=== PATIENT | female | born 1945 | race Caucasian/White ===

== ENCOUNTER → 2016-11-16 | Outpatient (CLI) | payer MEDICARE, BC, OTHER ==
--- NOTE | 2016-11-16 17:25 | REP ---
CHEST, TWO VIEWS: HISTORY: Shortness of breath. There is elevation of the left hemidiaphragm. The right lung is hyperinflated. The heart is upper limits of normal in size. The pulmonary vasculature is normal in appearance. The bony structure is intact. IMPRESSION: No acute disease. Signed by Stephen Zimmer MD 11/17/2016 08:35 A
== END ==
LOC: M RAD 16:29
PROVIDERS: ATTEND Internal Medicine Cardiovascular Disease
DX: R06.02 Shortness of breath (principal)

== ENCOUNTER → 2016-12-25 | Outpatient (CLI) | payer MEDICARE, OTHER ==
[~2016-12-25] MED LIST: BUPIVACAINE HCL 0.25% 10 ML VIAL As Ordered ONE; BUPIVACAINE HCL 0.25% 30 ML VIAL As Ordered ONE; TRIAMCINOLONE ACETONIDE SUSP 40 MG/ML VIAL (J3301) As Ordered ONE
--- NOTE | 2016-12-31 23:44 | ECWPNPC ---
PATIENT NAME: BRYAN PENG : 1945 GENDER: FEMALE VISIT DATE: 12/25/2016 DISCHARGE DATE: 12/25/16 1635 VISIT LOCKED DATE TIME: PHYSICIAN: JOHN MITCHELL RESOURCE: JOHN MITCHELL REASON FOR APPOINTMENT 1. TPI HISTORY OF PRESENT ILLNESS HISTORY OF PRESENT ILLNESS: PAIN THE PATIENT DESCRIBES THE PAIN... FALL RISK SCREENING: SCREENING :NO FALLS IN THE PAST YEAR CURRENT MEDICATIONS TAKING PEN NEEDLES 29G X 12MM MISCELLANEOUS 1 SUBCUTANEOUSLY ONCE DAILY TAKING ASPIR-81 81 MG TABLET DELAYED RELEASE 1 TABLET ORALLY ONCE A DAY, NOTES: YESTERDAY TAKING OMEPRAZOLE 40 MG CAPSULE DELAYED RELEASE 1 CAPSULE ORALLY ONCE A DAY, NOTES: 92912/25/16 TAKING LATANOPROST 0.005 % SOLUTION 1 DROP INTO AFFECTED EYE IN THE EVENING OPHTHALMIC ONCE A DAY, NOTES: 2199 TAKING DIGOXIN 125 MCG TABLET 1 TABLET ORALLY ONCE A DAY, NOTES: 92912/25/16 TAKING IMODIUM A-D 2 MG TABLET 2 TABLET ORALLY ONCE DAILY NEEDED, NOTES: 3 DAYS AGO TAKING ATENOLOL 50 MG TABLET 1 TABLET ORALLY ONCE A DAY, NOTES: 92912/25/16 TAKING BETAMETHASONE DIPROPIONATE 0.05 % CREAM 1 APPLICATION TO AFFECTED AREA EXTERNALLY ONCE A DAY, NOTES: 2 DAYS AGO TAKING BD PEN NEEDLE EVELYN U/F 32G X 4 MM MISCELLANEOUS DIRECTED SUBCUTANEOUSLY ONCE DAILY TAKING TRESIBA FLEXTOUCH 200 UNIT/ML SOLUTION PEN-INJECTOR 90 UNITS SUBCUTANEOUS DAILY, NOTES: MIDNIGHT TAKING INSULIN NPH (HUMAN) (ISOPHANE) 100 UNIT/ML SUSPENSION SUBCUTANEOUS SLIDING SCALE, NOTES: 92912/25/16 TAKING DIAZEPAM 5 MG TABLET 1 TABLET NEEDED ORALLY FOUR TIMES A DAY NEEDED, NOTES: 119912/25/16 TAKING LOMOTIL 2.5-0.025 MG TABLET 1 TABLET NEEDED ORALLY FOUR TIMES A DAY, NOTES: NOT LATELY TAKING TIZANIDINE HCL 2 MG TABLET 1 TABLET NEEDED ORALLY THREE TIMES A DAY, NOTES: 92912/25/16 TAKING ZETIA 10 MG TABLET 1 TABLET ORALLY ONCE A DAY, NOTES: YESTERDAY PM TAKING OXYCODONE HCL 5 MG TABLET 1 TABLET ORALLY EVERY 8 HR PRN MDD3, NOTES: 119912/25/16 NOT-TAKING TRESIBA 200 U/ML 90 UNITS SUBCUTANEOUSLY BEFORE SUPPER, NOTES: 08/13/16 1800-ON LIST TWICE NOT-TAKING MACROBID 100 MG CAPSULE 1 CAPSULE WITH FOOD ORALLY EVERY 12 HRS NOT-TAKING JAILYN-SYNEPHRINE 1 % SOLUTION 1 DROP IN EACH NOSTRIL NEEDED NASALLY EVERY 4 HRS, NOTES: 08/13/16 2200 NOT-TAKING LORATADINE 10 MG TABLET 1 TABLET ORALLY ONCE A DAY, NOTES: 2-3 DAYS MEDICATION LIST REVIEWED AND RECONCILED WITH THE PATIENT PAST MEDICAL HISTORY HYPERTENSION DM GERD CAD- [place] 2010 HYPERLIPIDEMIA INSOMNIA ANXIETY ATRIAL FLUTTER DX IN 2015- 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 GLAUCOMA ALLERGIES TETANUS IMMUNE GLOBULIN: STIFFNESS NECK AND ARM: ALLERGY TYLENOL: HIVES: ALLERGY HYDROCHLOROTHIAZIDE: HIVES: ALLERGY STAWBERRIES: ANAPHYLAXIS: ALLERGY DILTIAZEM CD: UNKNOWN: ALLERGY METOPROLOL TARTRATE: UNKNOWN: ALLERGY LISINOPRIL: UNKNOWN: ALLERGY BENZOCAINE: UNKNOWN: ALLERGY LIPITOR: EAR PROBLEMS: SIDE EFFECTS SIMVASTATIN: MYALGIA: SIDE EFFECTS CRESTOR: MYALGIA: SIDE EFFECTS BYDUREON: NAUSEA/VOMITNG: SIDE EFFECTS ACTOS: HX OF PANCREATITIS: ALLERGY DUST AND DUST MITES: SINUS CONGESTION: ALLERGY SOCIAL HISTORY GENERAL: PAIN CLINIC PFS, CLERGY, PUBLIC HEALTH REFERRALS CLERGY REFERRAL NEEDED?NO WAS THE PROVIDER NOTIFIED OF ANY PERTINENT INFO?NO PFS REFERRAL NEEDED?NO PUBLIC HEALTH REFERRAL NEEDED?NO PATIENT: ____. REVIEW OF SYSTEMS CONSTITUTIONAL: ANY CHANGE IN YOUR MEDICAL CONDITION? NO . CHILLS NO . FEVER NO . INFECTION: DO YOU HAVE NEW INFECTIONS? NO . DO YOU HAVE HISTORY OF MRSA? NO . MUSCULOSKELETAL: ANY NEW PATTERNS OF PAIN OR NUMBNESS? NO . GASTROENTEROLOGY: ANY NEW CHANGE IN BOWEL CONTROL? NO . GENITOURINARY: ANY NEW CHANGE IN BLADDER CONTROL? NO . IS THERE A CHANCE YOU COULD BE ? NO . HEMATOLOGY/LYMPH: DO YOU TAKE ANY BLOOD THINNERS? (FOR EXAMPLE- COUMADIN, PLAVIX, AGGRENOX, PLATEL, PRADAXA, OR XARELTO) NO . WHEN WAS YOUR LAST DOSE? DATE: TIME: . NEUROLOGY: HAVE YOU FALLEN IN THE PAST 6 MONTHS? YES . ANY NEW EXTREMITY NUMBNESS OR WEAKNESS? NO . CARDIOLOGY: DO YOU HAVE A PACEMAKER OR DEFIBRILLATOR? NO . RESPIRATORY: HAVE YOU BEEN SICK IN THE PAST WEEK? NO . FEVER NO . FLU LIKE SYMPTOMS? NO . COUGH NO . INTEGUMENTARY: DO YOU HAVE ANY RASHES OR OPEN SORES? NO . ALLERGIC/IMMUNO: ARE YOU ALLERGIC TO SHELLFISH OR IV DYE? NO . ANY NEW ALLERGIES? NO . PSYCHIATRIC: DO YOU HAVE THOUGHTS OF HURTING YOURSELF OR SOMEONE ELSE? NO . ARE YOU ABUSED, NEGLECTED, OR IN AN UNSAFE ENVIRONMENT? NO . ENDOCRINOLOGY: ARE YOU DIABETIC? YES, 109 AT 1200 TODAY . OTHER: DO YOU NEED ANY PRESCRIPTIONS? NO . ANY NEW PROBLEMS WITH YOUR MEDICATIONS? NO . WHEN DID YOU LAST EAT? 11AM . WHEN DID YOU LAST DRINK? 244 TODAY . WHAT DID YOU LAST DRINK? WATER . NAME OF PERSON DRIVING YOU HOME? KRISTIN GINETTE . DO YOU HAVE ANY OTHER QUESTIONS OR CONCERNS NO . REVIEWED BY: PROVIDER: . VITAL SIGNS WT 212 LBS, HT 62 IN, BMI 38.77 INDEX, BP 134/60 MM HG, HR 72 /MIN, RR 22 /MIN, TEMP 97.9 F, OXYGEN SAT % 94%, NA INITIALS SJ 1508, REVIEWED BY: NL. ASSESSMENTS MYALGIA - M79.1 (PRIMARY) PROCEDURES PN TRIGGER POINT INJECTION WITH STEROIDS PRE PROCEDURE DIAGNOSIS 1. MYALGIA 2. PAIN AT RIGHT SHOULDER AREA AND BILATERAL LOWER BACK AREA. POST PROCEDURE DIAGNOSIS 1. MYALGIA 2. PAIN AT RIGHT SHOULDER AREA AND BILATERAL LOWER BACK AREA. PROCEDURE TRIGGER POINT INJECTION AT RIGHT SHOULDER AREA AND BILATERAL LOWER BACK AREA. SURGEON DR. JOHN MITCHELL GAS INSPECTOR NONE ANESTHESIA LOCAL PRE PROCEDURE NOTE THE PATIENT HAS A HISTORY OF CHRONIC PAIN AT THE RIGHT SHOULDER AREA AND RIGHT AND LEFT LOWER BACK AREA. I EVALUATE THE PATIENT AND REVIEWED THE CHART. THERE IS EVIDENCE OF BANDS OF TISSUE WITH RESTRICTION OF MOVEMENT AND PRESENCE OF TRIGGER POINT AT THE AFFECTED AREA. I WENT OVER THE RISKS, ALTERNATIVES, AND BENEFITS ASSOCIATED WITH THIS PROCEDURE. THE PATIENT WOULD LIKE TO PROCEED AND GIVE CONSENT TO PERFORMED THE PROCEDURE. THE PATIENT DENIES UNEXPLAINABLE WEIGHT LOSS, FEVER, CHILLS, OR NEW CHANGES IN URINARY OR BOWEL CONTROL DESCRIPTION OF PROCEDURE THE PATIENT WAS BROUGHT TO THE PROCEDURE ROOM AND PLACED IN THE SITTING POSITION. THE AREA WAS CLEANED WITH ALCOHOL. THE PROCEDURE WAS DONE USING ASEPTIC STERILE TECHNIQUE. I CHECKED LATERALITY AND THE LEVEL WHERE THE PROCEDURE WAS GOING TO BE PERFORMED WITH THE PATIENT AND THE SUPPORTING STAFF AT THE MOMENT OF THE TIME OUT IN THE PROCEDURE ROOM. USING A 25-GAUGE NEEDLE, TRIGGER POINTS WERE INJECTED AT THE RIGHT SHOULDER AREA AND RIGHT AND LEFT LOWER BACK AREA WITH A TOTAL OF 40 ML OF BUPIVACAINE 0.25% AND KENALOG 40 MG. THERE WAS NO EVIDENCE OF BLOOD, PARESTHESIA OR CEREBROSPINAL FLUID DURING THE PROCEDURE. THE PATIENT WAS SENT TO THE RECOVERY ROOM. THE PATIENT WAS MOVING THE EXTREMITIES AND DOING WELL. THERE WAS NO COMPLICATION DURING THE PROCEDURE POST PROCEDURE NOTE THE PATIENT WILL BE SEEN IN A FOLLOW UP IN THE NEXT FEW WEEKS. INSTRUCTIONS WERE GIVEN, QUESTIONS WERE ANSWERED, AND THE PATIENT EXPRESSED UNDERSTANDING AND AGREES WITH THE PLAN. I, ROLO RILEY, DOCUMENTED THE ABOVE INFORMATION ACTING A SCRIBE FOR DR. MITCHELL. I HAVE REVIEWED THE ABOVE DOCUMENT, WRITTEN BY ORLO RILEY SCRIBE AND I VERIFY THAT IT IS ACCURATE. PROCEDURE CODES 95321 INJECT TRIGGER POINTS 3/> DISPOSITION & COMMUNICATION FOLLOW UP 3 WEEKS ELECTRONICALLY SIGNED BY JOHN MITCHELL MD ON 12/31/2016 AT 05:40 PM EDT DISCLAIMER : THIS IS A VISIT SUMMARY EXTRACTED FROM THE [email or web address] CHART. IT IS NOT A COPY OF THE [email or web address] PROGRESS NOTE. DUNG
== END ==
LOC: M PAIN 14:20
PROVIDERS: ATTEND Anesthesiology
DX: G89.29 Other chronic pain (principal); M25.511 Pain in right shoulder; M54.5 Low back pain; M79.1 Myalgia; I10 Essential (primary) hypertension; E11.9 Type 2 diabetes mellitus without complications; K21.9 Gastro-esophageal reflux disease without esophagitis; I25.2 Old myocardial infarction; E78.5 Hyperlipidemia, unspecified; G47.00 Insomnia, unspecified; F41.9 Anxiety disorder, unspecified; I48.92 Unspecified atrial flutter; Z88.7 Allergy status to serum and vaccine; Z91.018 Allergy to other foods; Z88.8 Allergy status to other drugs, medicaments and biological substances; Z91.048 Other nonmedicinal substance allergy status; Z79.82 Long term (current) use of aspirin; Z79.4 Long term (current) use of insulin; Z79.891 Long term (current) use of opiate analgesic; Z79.899 Other long term (current) drug therapy
CPT/HCPCS: 20553; J3301

== ENCOUNTER → 2017-01-01 | Outpatient (CLI) | payer MEDICARE, BC, OTHER ==
--- NOTE | 2017-01-01 15:50 | REP ---
SNIFF TEST: History: Post paralysis and repair left hemidiaphragm. The patient is status post coronary artery bypass grafting. Shortness of breath. Fluoroscopy time is 1 minute 6 seconds. Findings: The left hemidiaphragm is seen to be quite elevated over the gastric air bubble. With inspiration, and sniffing, the left hemidiaphragm moves in the appropriate direction, however, only very slightly. Right hemidiaphragm motion is normal. There is no paradoxical motion seen. Impression: Significantly restricted left hemidiaphragm motion. No paradoxical motion seen. Left hemidiaphragm is quite elevated. Signed by Kodak Gerardo MD 01/01/2017 06:27 P
== END ==
LOC: M RAD 13:06
PROVIDERS: ATTEND Internal Medicine Cardiovascular Disease
DX: R06.02 Shortness of breath (principal)

== ENCOUNTER → 2017-01-05 | Outpatient (CLI) | payer MEDICARE, OTHER ==
--- NOTE | 2017-01-20 00:48 | ECWPNPC ---
PATIENT NAME: BRYAN PENG : 1945 GENDER: FEMALE VISIT DATE: 01/05/2017 DISCHARGE DATE: 01/05/17 1421 VISIT LOCKED DATE TIME: PHYSICIAN: PIETRO ANDUJAR RESOURCE: PIETRO ANDUJAR REASON FOR APPOINTMENT 1. BACK HISTORY OF PRESENT ILLNESS HISTORY OF PRESENT ILLNESS: PAIN THE PATIENT DESCRIBES THE PAIN... FALL RISK SCREENING: SCREENING :NO FALLS IN THE PAST YEAR TODAY'S VISIT: NOTES: S/P TPI 12/25/16. RATES PAIN TODAY 5/10. DESCRIBES PAIN ASACHING, SHARP AND STABBING. NOTES PAIN IS OVER RIGHT SHOULDER BLADE, AND ACROSS LOW BACK. NOTES NEAR COMPLETE RESOLUTION OF PAIN IN RIGHT SHOULDER AND REDUCTION ACROSS LOW BACK. CURRENT MEDICATIONS TAKING PEN NEEDLES 29G X 12MM MISCELLANEOUS 1 SUBCUTANEOUSLY ONCE DAILY TAKING ASPIR-81 81 MG TABLET DELAYED RELEASE 1 TABLET ORALLY ONCE A DAY TAKING OMEPRAZOLE 40 MG CAPSULE DELAYED RELEASE 1 CAPSULE ORALLY ONCE A DAY TAKING LATANOPROST 0.005 % SOLUTION 1 DROP INTO AFFECTED EYE IN THE EVENING OPHTHALMIC ONCE A DAY TAKING DIGOXIN 125 MCG TABLET 1 TABLET ORALLY ONCE A DAY TAKING IMODIUM A-D 2 MG TABLET 2 TABLET ORALLY ONCE DAILY NEEDED TAKING ATENOLOL 50 MG TABLET 1 TABLET ORALLY ONCE A DAY TAKING BETAMETHASONE DIPROPIONATE 0.05 % CREAM 1 APPLICATION TO AFFECTED AREA EXTERNALLY ONCE A DAY TAKING BD PEN NEEDLE EVELYN U/F 32G X 4 MM MISCELLANEOUS DIRECTED SUBCUTANEOUSLY ONCE DAILY TAKING TRESIBA FLEXTOUCH 200 UNIT/ML SOLUTION PEN-INJECTOR 90 UNITS SUBCUTANEOUS DAILY TAKING INSULIN NPH (HUMAN) (ISOPHANE) 100 UNIT/ML SUSPENSION SUBCUTANEOUS SLIDING SCALE TAKING DIAZEPAM 5 MG TABLET 1 TABLET NEEDED ORALLY FOUR TIMES A DAY NEEDED TAKING LOMOTIL 2.5-0.025 MG TABLET 1 TABLET NEEDED ORALLY FOUR TIMES A DAY TAKING TIZANIDINE HCL 2 MG TABLET 1 TABLET NEEDED ORALLY THREE TIMES A DAY TAKING ZETIA 10 MG TABLET 1 TABLET ORALLY ONCE A DAY TAKING OXYCODONE HCL 5 MG TABLET 1 TABLET ORALLY EVERY 8 HR PRN MDD3 TAKING NYSTATIN 221513 UNIT/GM POWDER 1 TO AFFECTED AREA EXTERNALLY TWICE A DAY NOT-TAKING TRESIBA 200 U/ML 90 UNITS SUBCUTANEOUSLY BEFORE SUPPER, NOTES: 08/13/16 1800-ON LIST TWICE NOT-TAKING MACROBID 100 MG CAPSULE 1 CAPSULE WITH FOOD ORALLY EVERY 12 HRS NOT-TAKING JAILYN-SYNEPHRINE 1 % SOLUTION 1 DROP IN EACH NOSTRIL NEEDED NASALLY EVERY 4 HRS, NOTES: 08/13/16 2200 NOT-TAKING LORATADINE 10 MG TABLET 1 TABLET ORALLY ONCE A DAY, NOTES: 2-3 DAYS MEDICATION LIST REVIEWED AND RECONCILED WITH THE PATIENT PAST MEDICAL HISTORY HYPERTENSION DM GERD CAD- [place] 2010 HYPERLIPIDEMIA INSOMNIA ANXIETY ATRIAL FLUTTER DX IN 2016- DR LAGUERRE GLAUCOMA ALLERGIES TETANUS IMMUNE GLOBULIN: STIFFNESS NECK AND ARM: ALLERGY TYLENOL: HIVES: ALLERGY HYDROCHLOROTHIAZIDE: HIVES: ALLERGY STAWBERRIES: ANAPHYLAXIS: ALLERGY DILTIAZEM CD: UNKNOWN: ALLERGY METOPROLOL TARTRATE: UNKNOWN: ALLERGY LISINOPRIL: UNKNOWN: ALLERGY BENZOCAINE: UNKNOWN: ALLERGY LIPITOR: EAR PROBLEMS: SIDE EFFECTS SIMVASTATIN: MYALGIA: SIDE EFFECTS CRESTOR: MYALGIA: SIDE EFFECTS BYDUREON: NAUSEA/VOMITNG: SIDE EFFECTS ACTOS: HX OF PANCREATITIS: ALLERGY DUST AND DUST MITES: SINUS CONGESTION: ALLERGY SOCIAL HISTORY GENERAL: PAIN CLINIC PFS, CLERGY, PUBLIC HEALTH REFERRALS CLERGY REFERRAL NEEDED?NO WAS THE PROVIDER NOTIFIED OF ANY PERTINENT INFO?NO PFS REFERRAL NEEDED?NO PUBLIC HEALTH REFERRAL NEEDED?NO PATIENT: ____. REVIEW OF SYSTEMS CONSTITUTIONAL: ANY CHANGE IN YOUR MEDICAL CONDITION? YES, LOW BLOOD SUGARS . CHILLS NO . FEVER NO . INFECTION: DO YOU HAVE NEW INFECTIONS? NO . DO YOU HAVE HISTORY OF MRSA? NO . MUSCULOSKELETAL: ANY NEW PATTERNS OF PAIN OR NUMBNESS? NO . GASTROENTEROLOGY: GENERAL PERSISTANT BOWEL LEAKAGE. BLACK TARRY STOOL FREQ. HAD COLONSCOPY ALL CLEAR . ANY NEW CHANGE IN BOWEL CONTROL? NO . GENITOURINARY: ANY NEW CHANGE IN BLADDER CONTROL? NO . IS THERE A CHANCE YOU COULD BE ? NO . HEMATOLOGY/LYMPH: DO YOU TAKE ANY BLOOD THINNERS? (FOR EXAMPLE- COUMADIN, PLAVIX, AGGRENOX, PLATEL, PRADAXA, OR XARELTO) NO . WHEN WAS YOUR LAST DOSE? DATE: TIME: . NEUROLOGY: HAVE YOU FALLEN IN THE PAST 6 MONTHS? YES, SLIPPED IN THE SHOWER LAST NIGHT . ANY NEW EXTREMITY NUMBNESS OR WEAKNESS? NO . CARDIOLOGY: DO YOU HAVE A PACEMAKER OR DEFIBRILLATOR? NO . RESPIRATORY: HAVE YOU BEEN SICK IN THE PAST WEEK? NO . FEVER NO . FLU LIKE SYMPTOMS? NO . COUGH NO . INTEGUMENTARY: DO YOU HAVE ANY RASHES OR OPEN SORES? NO . ALLERGIC/IMMUNO: ARE YOU ALLERGIC TO SHELLFISH OR IV DYE? NO . ANY NEW ALLERGIES? NO . PSYCHIATRIC: DO YOU HAVE THOUGHTS OF HURTING YOURSELF OR SOMEONE ELSE? NO . ARE YOU ABUSED, NEGLECTED, OR IN AN UNSAFE ENVIRONMENT? NO . ENDOCRINOLOGY: ARE YOU DIABETIC? FEELS IS HAVING EPISODES OF LOW BLOOD SUGAR . OTHER: DO YOU NEED ANY PRESCRIPTIONS? YES . IF YES, PLEASE LIST: OXYCODONE 5MG . ANY NEW PROBLEMS WITH YOUR MEDICATIONS? NO . WHEN DID YOU LAST EAT? ____ . WHEN DID YOU LAST DRINK? ____ . WHAT DID YOU LAST DRINK? ____ . NAME OF PERSON DRIVING YOU HOME? ____ . DO YOU HAVE ANY OTHER QUESTIONS OR CONCERNS NO . REVIEWED BY: PROVIDER: PIETRO FELICIANO . VITAL SIGNS WT 207.3 LBS, HT 62 IN, BMI 37.91 INDEX, BP 140/64 MM HG, HR 68 /MIN, RR 20 /MIN, TEMP 98.1 F, OXYGEN SAT % 96, REVIEWED BY: NL. EXAMINATION GENERAL EXAMINATION: PSYCHALERT , ORIENTED X 3 , APPROPRIATE MOOD AND AFFECT , APPEARS UNCOMFORTABLE. LUNGS:CLEAR TO AUSCULTATION BILATERALLY, NO WHEEZES RALES OR RHONCHI. HEART:HEART RATE REGULAR. MUSCULOSKELETAL:POINT TENDERNESS OVER LUMBAR SPINOUS PROCESSES AND ACROSS THE LUMBOSACRAL AXIS. TENDERNESS WITH PALPATION OVER THE RIGHT SACROILIAC JOINT.. NO FOOT DROP NOTED. SLOW TO RISE TO A STANDING POSITION. POSTURE UPRIGHT. GAIT SLOW AND MILDLY ANTALGIC. , TRIGGER POINTS AND TIGHT FIBROUS BANDS IDENTIFIED OVER LUMBOSACRAL MUSCULATURE. DECREASED ROM WITH FLEXIOON AND ROTATION. ASSESSMENTS INTERVERTEBRAL DISC DISORDERS WITH RADICULOPATHY, LUMBAR REGION - M51.16 (PRIMARY) LUMBAGO DUE TO DISPLACEMENT OF INTERVERTEBRAL DISC - M51.26 TREATMENT INTERVERTEBRAL DISC DISORDERS WITH RADICULOPATHY, LUMBAR REGION REFILL OXYCODONE HCL TABLET, 5 MG, 1 TABLET, ORALLY, EVERY 8 HR PRN MDD3, 30 DAY(S), 60, REFILLS 0 TRIGGER POINT 3 + PIETRO RUSSELL 01/05/2017 2:02:31 PM > NECK/ RIGHT SHOULDER AND LOW BACK BILATERAL NOTES: CONTACT PRIMARY DOC ABOUT BLACK TARRY STOOLS, AND LEAKY BOWELS. CONTINUE CURRENT MEDS - USE OXYCODONE INFREQUENTLY. PREVENTIVE MEDICINE PAIN CLINIC TEACHING: PROCEDURE TEACHING PT. DECLINED PRINTED INFORMATION ON TPI STATING SHE HAS HAD THEM BEFORE AND IS FAMILIAR WITH THE PROCESS. PRE-PROCEDURE INSTRUCTIONS REVIEWED WITH PT. AND SHE VERBALIZED UNDERSTANDING. AD. PROCEDURE CODES FA211 ESTABILISHED PATIENT [facility] FACILITY CHARGE G8730 PAIN ASSESS POS TOOL F/U PLAN DOC G8427 DOC MEDS VERIFIED W/PT OR RE DISPOSITION & COMMUNICATION FOLLOW UP AFTER INJECTION (REASON: TPI TO LOW BACK/SHOULDER IN MID JANUARY) ELECTRONICALLY SIGNED BY LORENA LOPEZ ON 01/19/2017 AT 02:42 PM EDT DISCLAIMER : THIS IS A VISIT SUMMARY EXTRACTED FROM THE [employer] CHART. IT IS NOT A COPY OF THE [employer] PROGRESS NOTE. DUNG
== END ==
LOC: M PAIN 14:00
PROVIDERS: ATTEND Nurse Practitioner Family
DX: G89.29 Other chronic pain (principal); M51.16 Intervertebral disc disorders with radiculopathy, lumbar region; M51.26 Other intervertebral disc displacement, lumbar region; I10 Essential (primary) hypertension; E11.9 Type 2 diabetes mellitus without complications; K21.9 Gastro-esophageal reflux disease without esophagitis; I25.2 Old myocardial infarction; E78.5 Hyperlipidemia, unspecified; G47.00 Insomnia, unspecified; F41.9 Anxiety disorder, unspecified; Z88.7 Allergy status to serum and vaccine; Z88.6 Allergy status to analgesic agent; Z88.8 Allergy status to other drugs, medicaments and biological substances; Z91.018 Allergy to other foods; J30.89 Other allergic rhinitis; Z79.82 Long term (current) use of aspirin; Z79.4 Long term (current) use of insulin; Z79.891 Long term (current) use of opiate analgesic; Z79.899 Other long term (current) drug therapy

== ENCOUNTER → 2017-01-30 | Outpatient (CLI) | payer MEDICARE, OTHER ==
--- NOTE | 2017-02-10 00:31 | ECWPNPC ---
PATIENT NAME: BRYAN PENG : 1945 GENDER: FEMALE VISIT DATE: 01/30/2017 DISCHARGE DATE: 01/30/171706 VISIT LOCKED DATE TIME: PHYSICIAN: JOHN MITCHELL RESOURCE: JOHN MITCHELL HISTORY OF PRESENT ILLNESS HISTORY OF PRESENT ILLNESS: PAIN THE PATIENT DESCRIBES THE PAIN... 72 YEAR OLD FEMALE PATIENT WITH HISTORY OF CHRONIC BACK PAIN. PATIENT DESCRIBES THE PAIN ACHING, STABBING, AND HAVING IT ALL THE TIME WITH A PAIN SCORE OF 3/10 ON TODAY'S VISIT. PATIENT STATES THAT HER LOW BACK HURTS THE MOST TODAY. IT IS VERY DIFFICULT FOR MS. PENG TO BEND HER BACK. , PATIENT DENIES UNEXPLAINABLE WEIGHT LOSS, FEVER, CHILLS, NEW CHANGES ON HER URINARY OR BOWEL CONTROL. FALL RISK SCREENING: SCREENING :NO FALLS IN THE PAST YEAR CURRENT MEDICATIONS TAKING PEN NEEDLES 29G X 12MM MISCELLANEOUS 1 SUBCUTANEOUSLY ONCE DAILY TAKING ASPIR-81 81 MG TABLET DELAYED RELEASE 1 TABLET ORALLY ONCE A DAY TAKING OMEPRAZOLE 40 MG CAPSULE DELAYED RELEASE 1 CAPSULE ORALLY ONCE A DAY TAKING LATANOPROST 0.005 % SOLUTION 1 DROP INTO AFFECTED EYE IN THE EVENING OPHTHALMIC ONCE A DAY TAKING DIGOXIN 125 MCG TABLET 1 TABLET ORALLY ONCE A DAY TAKING IMODIUM A-D 2 MG TABLET 2 TABLET ORALLY ONCE DAILY NEEDED, NOTES: TAKES LOMOTIL FIRST TAKING ATENOLOL 50 MG TABLET 1 TABLET ORALLY ONCE A DAY TAKING BETAMETHASONE DIPROPIONATE 0.05 % CREAM 1 APPLICATION TO AFFECTED AREA EXTERNALLY ONCE A DAY TAKING BD PEN NEEDLE EVELYN U/F 32G X 4 MM MISCELLANEOUS DIRECTED SUBCUTANEOUSLY ONCE DAILY TAKING INSULIN NPH (HUMAN) (ISOPHANE) 100 UNIT/ML SUSPENSION SUBCUTANEOUS SLIDING SCALE TAKING DIAZEPAM 5 MG TABLET 1 TABLET NEEDED ORALLY FOUR TIMES A DAY NEEDED TAKING LOMOTIL 2.5-0.025 MG TABLET 1 TABLET NEEDED ORALLY FOUR TIMES A DAY TAKING TIZANIDINE HCL 2 MG TABLET 1 TABLET NEEDED ORALLY THREE TIMES A DAY TAKING NYSTATIN 900271 UNIT/GM POWDER 1 TO AFFECTED AREA EXTERNALLY TWICE A DAY TAKING OXYCODONE HCL 5 MG TABLET 1 TABLET ORALLY EVERY 8 HR PRN MDD3 TAKING PROZAC 40 MG CAPSULE 1 CAPSULE IN THE MORNING ORALLY ONCE A DAY TAKING TERBINAFINE HCL 1 % CREAM 1 APPLICATION TO AFFECTED AREA- BREAST EXTERNALLY TWICE A DAY NOT-TAKING TRESIBA FLEXTOUCH 200 UNIT/ML SOLUTION PEN-INJECTOR 90 UNITS SUBCUTANEOUS DAILY NOT-TAKING ZETIA 10 MG TABLET 1 TABLET ORALLY ONCE A DAY NOT-TAKING TRESIBA 200 U/ML 90 UNITS SUBCUTANEOUSLY BEFORE SUPPER, NOTES: 08/13/16 1800-ON LIST TWICE NOT-TAKING MACROBID 100 MG CAPSULE 1 CAPSULE WITH FOOD ORALLY EVERY 12 HRS NOT-TAKING JAILYN-SYNEPHRINE 1 % SOLUTION 1 DROP IN EACH NOSTRIL NEEDED NASALLY EVERY 4 HRS, NOTES: 08/13/16 2200 NOT-TAKING LORATADINE 10 MG TABLET 1 TABLET ORALLY ONCE A DAY, NOTES: 2-3 DAYS MEDICATION LIST REVIEWED AND RECONCILED WITH THE PATIENT PAST MEDICAL HISTORY HYPERTENSION DM GERD CAD- [place] 2010 HYPERLIPIDEMIA INSOMNIA ANXIETY ATRIAL FLUTTER DX IN 2016- DR LAGUERRE GLAUCOMA ALLERGIES TETANUS IMMUNE GLOBULIN: STIFFNESS NECK AND ARM: ALLERGY TYLENOL: HIVES: ALLERGY HYDROCHLOROTHIAZIDE: HIVES: ALLERGY STAWBERRIES: ANAPHYLAXIS: ALLERGY DILTIAZEM CD: UNKNOWN: ALLERGY METOPROLOL TARTRATE: UNKNOWN: ALLERGY LISINOPRIL: UNKNOWN: ALLERGY BENZOCAINE: UNKNOWN: ALLERGY LIPITOR: EAR PROBLEMS: SIDE EFFECTS SIMVASTATIN: MYALGIA: SIDE EFFECTS CRESTOR: MYALGIA: SIDE EFFECTS BYDUREON: NAUSEA/VOMITNG: SIDE EFFECTS ACTOS: HX OF PANCREATITIS: ALLERGY DUST AND DUST MITES: SINUS CONGESTION: ALLERGY SURGICAL HISTORY LEFT KNEE ARTHROSCOPY LEFT KNEE TKA 2000 RIGHT CARPAL TUNNEL RELEASE HYSTERECTOMY CABG X 5 2010 FAMILY HISTORY NO FAMILY HISTORY DOCUMENTED. SOCIAL HISTORY GENERAL: TOBACCO USE ARE YOU A:FORMER SMOKER HOW LONG HAS IT BEEN SINCE YOU LAST SMOKED?1-5 YEARS BMI CARE GOAL FOLLOW-UP ABOVE NORMAL BMI FOLLOW-UPDIETARY MANAGEMENT EDUCATION, GUIDANCE, AND COUNSELING ALCOHOL SCREENING DID YOU HAVE A DRINK CONTAINING ALCOHOL IN THE PAST YEAR?NO POINTS0 INTERPRETATIONNEGATIVE RECREATIONAL DRUG USE DRUG USE?NO CAFFEINE CAFFEINE USE?YES HIV / HEP-C SCREENING HIV TEST OFFERED TO PATIENT:NO HEP-C TEST OFFERED TO PATIENT:YES DATE OFFERED:01/15/2017 TEST ACCEPTED:NO REASON:PATIENT DECLINED DIET: REGULAR. EXERCISE: NO REGULAR EXERCISE. OTHERS AT HOME: NONE. LANGUAGE LANGUAGES SPOKEN:TURKISH LEARNING BARRIERS / SPECIAL NEEDS CHANGE FROM LAST VISIT?NO BARRIERS TO LEARNING?NO HEARING IMPAIRED?NO VISION IMPAIRED?YES COGNITIVELY IMPAIRED?NO :CORRECTIVE LENSES READINESS TO LEARN?YES LEARNING PREFERENCES?NO LEARNING CAPABILITIES PRESENT?YES EMOTIONAL BARRIERS?YES COMMENTSDOCUMENTED IN NOTES SECTION> SPECIAL DEVICES?YES :CANE SENIOR IT SPECIALIST NEEDED?NO PAIN CLINIC PFS, CLERGY, PUBLIC HEALTH REFERRALS PFS REFERRAL NEEDED?NO CLERGY REFERRAL NEEDED?NO PUBLIC HEALTH REFERRAL NEEDED?NO WAS THE PROVIDER NOTIFIED OF ANY PERTINENT INFO?NO PATIENT: ____. HOSPITALIZATION/MAJOR DIAGNOSTIC PROCEDURE [facility] FLUTTER 12/27/15 REVIEW OF SYSTEMS CONSTITUTIONAL: ANY CHANGE IN YOUR MEDICAL CONDITION? NO . CHILLS NO . FEVER NO . INFECTION: DO YOU HAVE NEW INFECTIONS? NO . DO YOU HAVE HISTORY OF MRSA? NO . MUSCULOSKELETAL: ANY NEW PATTERNS OF PAIN OR NUMBNESS? NO . GASTROENTEROLOGY: ANY NEW CHANGE IN BOWEL CONTROL? NO . GENITOURINARY: ANY NEW CHANGE IN BLADDER CONTROL? NO . IS THERE A CHANCE YOU COULD BE ? NO . HEMATOLOGY/LYMPH: DO YOU TAKE ANY BLOOD THINNERS? (FOR EXAMPLE- COUMADIN, PLAVIX, AGGRENOX, PLATEL, PRADAXA, OR XARELTO) NO . WHEN WAS YOUR LAST DOSE? DATE: TIME: . NEUROLOGY: HAVE YOU FALLEN IN THE PAST 6 MONTHS? YES . ANY NEW EXTREMITY NUMBNESS OR WEAKNESS? NO . CARDIOLOGY: DO YOU HAVE A PACEMAKER OR DEFIBRILLATOR? NO . RESPIRATORY: HAVE YOU BEEN SICK IN THE PAST WEEK? YES, SHINGLES . FEVER NO . FLU LIKE SYMPTOMS? NO . COUGH NO . INTEGUMENTARY: DO YOU HAVE ANY RASHES OR OPEN SORES? NO . ALLERGIC/IMMUNO: ARE YOU ALLERGIC TO SHELLFISH OR IV DYE? NO . ANY NEW ALLERGIES? NO . PSYCHIATRIC: DO YOU HAVE THOUGHTS OF HURTING YOURSELF OR SOMEONE ELSE? NO . ARE YOU ABUSED, NEGLECTED, OR IN AN UNSAFE ENVIRONMENT? NO . ENDOCRINOLOGY: ARE YOU DIABETIC? NO . OTHER: DO YOU NEED ANY PRESCRIPTIONS? YES . IF YES, PLEASE LIST: OXYCODONE 5MG . ANY NEW PROBLEMS WITH YOUR MEDICATIONS? NO . WHEN DID YOU LAST EAT? ____ . WHEN DID YOU LAST DRINK? ____ . WHAT DID YOU LAST DRINK? ____ . NAME OF PERSON DRIVING YOU HOME? ____ . DO YOU HAVE ANY OTHER QUESTIONS OR CONCERNS NO . REVIEWED BY: PROVIDER: JOHN MITCHELL MD . VITAL SIGNS WT 203.2 LBS, HT 62 IN, BMI 37.16 INDEX, BP 129/69 MM HG, HR 60 /MIN, RR 18 /MIN, TEMP 97.1 F, OXYGEN SAT % 98%, NA INITIALS SC 15:45, REVIEWED BY: NL. EXAMINATION : PATIENT IS ALERT O X 3 AND COOPERATIVE. THERE IS TENDERNESS IN THE LOW BACK PARASPINAL MUSCLE GROUP. MRI OF THE LUMBAR SPINE DONE ON 02/10/2016 SHOWS FACET ARTHROPATHY, DISC BULGES, AND CANAL STENOSIS AT MULTIPLE LEVELS. ASSESSMENTS SPONDYLOSIS WITHOUT MYELOPATHY OR RADICULOPATHY, LUMBAR REGION - M47.816 (PRIMARY) SPONDYLOSIS WITHOUT MYELOPATHY OR RADICULOPATHY, LUMBOSACRAL REGION - M47.817 TREATMENT SPONDYLOSIS WITHOUT MYELOPATHY OR RADICULOPATHY, LUMBAR REGION NOTES: WE DISCUSSED SEVERAL ISSUES WITH MS. PENG'S PAIN MANAGEMENT CASE. AT THIS TIME THE PATIENT WILL CONTINUE WITH THE SAME MEDICATION REGIMEN BEFORE. AFTER EXAMINING THE PATIENT AND REVIEWING THE MRI OF THE LUMBAR SPINE PATIENT IS A GOOD CANDIDATE FOR A LUMBAR FACET BLOCK INJECTION THERAPEUTIC. WE DISCUSSED THE RISK, BENEFITS, AND ALTERNATIVES AND THE PATIENT WANTS TO PROCEED FORWARD. PATIENT WILL BE BOOKED PENDING APPROVAL. PATIENT WILL FOLLOW UP WITH ANIKA ANDUJAR IN 4 WEEKS. , INSTRUCTIONS WERE GIVEN, QUESTIONS WERE ANSWERED, PATIENT REPORTS UNDERSTANDING AND AGREES WITH THE PLAN. I, ROLO RILEY, DOCUMENTED THE ABOVE INFORMATION ACTING A SCRIBE FOR DR. MITCHELL. I HAVE REVIEWED THE ABOVE DOCUMENT, WRITTEN BY ROLO RILEY SCRIBJakob AND I VERIFY THAT IT IS ACCURATE. PROCEDURE CODES FA211 ESTABILISHED PATIENT [facility] FACILITY CHARGE [id number] PAIN ASSESS POS TOOL F/U PLAN DOC G8427 DOC MEDS VERIFIED W/PT OR RE DISPOSITION & COMMUNICATION FOLLOW UP 4 WEEKS ELECTRONICALLY SIGNED BY JOHN MITCHELL MD ON 02/09/2017 AT 04:04 PM EDT DISCLAIMER : THIS IS A VISIT SUMMARY EXTRACTED FROM THE [employer] CHART. IT IS NOT A COPY OF THE [employer] PROGRESS NOTE. DUNG
== END ==
LOC: M PAIN 15:20
PROVIDERS: ATTEND Anesthesiology
DX: G89.29 Other chronic pain (principal); M47.816 Spondylosis without myelopathy or radiculopathy, lumbar region; M47.817 Spondylosis without myelopathy or radiculopathy, lumbosacral region; I10 Essential (primary) hypertension; E11.9 Type 2 diabetes mellitus without complications; K21.9 Gastro-esophageal reflux disease without esophagitis; I25.2 Old myocardial infarction; E78.5 Hyperlipidemia, unspecified; G47.00 Insomnia, unspecified; F41.9 Anxiety disorder, unspecified; Z88.7 Allergy status to serum and vaccine; Z88.6 Allergy status to analgesic agent; Z88.8 Allergy status to other drugs, medicaments and biological substances; Z91.018 Allergy to other foods; J30.89 Other allergic rhinitis; Z79.82 Long term (current) use of aspirin; Z79.4 Long term (current) use of insulin; Z79.891 Long term (current) use of opiate analgesic; Z79.899 Other long term (current) drug therapy; Z87.891 Personal history of nicotine dependence

== ENCOUNTER → 2017-02-06 | Outpatient (REF) | payer MEDICARE, OTHER ==
[2017-02-06 16:50] LABS: BASO % 0.4 % (0.0-1.0); EOS # 0.1 K/mm3 (0.0-0.50); EOS % 1.1 % (0.0-3.0); LARGE UNSTAINED CELL # 0.1 K/mm3 (0.0-0.4); LYMPH # 1.5 K/mm3 (1.5-4.5); LYMPH % 15.5 % (24.0-44.0); MEAN CORPUSCULAR HEMOGLOBIN 26.4 pg (27.0-33.0); MEAN CORPUSCULAR HGB CONC 31.6 g/dl (32.0-36.5); MEAN CORPUSCULAR VOLUME 83.3 fl (80.0-96.0); MONO # 0.4 K/mm3 (0.0-0.8); MONO % 4.7 % (0.0-5.0); NEUTROPHILS # 7.1 K/mm3 (1.8-7.7); NEUTROPHILS % 77.3 % (36.0-66.0); PLATELET COUNT, AUTOMATED 337 k/mm3 (150-450); RED CELL DISTRIBUTION WIDTH 16.4 % (11.5-14.5); WHITE BLOOD COUNT 9.2 K/mm3 (4.0-10.0)
[2017-02-06 17:19] LABS: ERYTHROCYTE SEDIMENTATION RATE 11 mm/hr (0-30)
[2017-02-06 18:57] LABS: ALBUMIN 3.5 GM/DL (3.2-5.2); ALBUMIN/GLOBULIN RATIO 1.25 (1.00-1.93); ALKALINE PHOSPHATASE 120 U/L (45-117); ALT/SGPT 28 U/L (12-78); ANION GAP 12 MEQ/L (8-16); AST/SGOT 16 U/L (15-37); BILIRUBIN,TOTAL 0.3 MG/DL (0.2-1.0); BLOOD UREA NITROGEN 16 MG/DL (7-18); CALCIUM LEVEL 8.6 MG/DL (8.8-10.2); CARBON DIOXIDE LEVEL 25 MEQ/L (21-32); CHLORIDE LEVEL 100 MEQ/L (98-107); CREATININE FOR GFR 0.75 MG/DL (0.55-1.02); GLOMERULAR FILTRATION RATE > 60.0 (>45); GLUCOSE, FASTING 189 MG/DL (80-110); POTASSIUM SERUM 4.1 MEQ/L (3.5-5.1); SODIUM LEVEL 137 MEQ/L (136-145); THYROXINE (T4) 11.3 UG/DL (4.5-12.0); TOTAL PROTEIN 6.3 GM/DL (6.4-8.2)
== END ==
LOC: M SFHCCLAY 13:41
PROVIDERS: ATTEND Family Medicine
DX: R10.11 Right upper quadrant pain (principal); R19.5 Other fecal abnormalities; Z79.899 Other long term (current) drug therapy
CPT/HCPCS: 80053; 82784; 84436; 84443; 84480; 85025; 85652; 86140; 86256; G0463

== ENCOUNTER → 2017-02-07 | Outpatient (CLI) | payer MEDICARE, OTHER ==
[~2017-02-07] MED LIST changes: -BUPIVACAINE HCL 0.25% 10 ML VIAL As Ordered ONE; +ISOVUE-M 300 61% 15ML VIAL (Q9967) As Ordered ONE; +LIDOCAINE 1% SDV INJ 30 ML VIAL As Ordered ONE; +diazePAM 5 MG TAB As Ordered ONE; +oxyCODONE 5MG TAB As Ordered ONE
--- NOTE | 2017-02-07 16:53 | REP ---
Partial lumbar spine series: Two views: History: Lateral facet block for pain. 16 seconds of fluoroscopy time is reported. Findings: A sequence of two fluoroscopically obtained last image hold intraprocedural spot radiographs of the lumbar spine document various needle positions and contrast injection associated with lumbar spine injection procedure. Signed by Kodak Gerardo MD 02/08/2017 08:59 A
--- NOTE | 2017-02-12 23:15 | ECWPNPC ---
PATIENT NAME: BRYAN PENG : 1945 GENDER: FEMALE VISIT DATE: 02/07/2017 DISCHARGE DATE: 02/07/171654 VISIT LOCKED DATE TIME: PHYSICIAN: JOHN MITCHELL RESOURCE: JOHN MITCHELL REASON FOR APPOINTMENT 1. LFBT HISTORY OF PRESENT ILLNESS HISTORY OF PRESENT ILLNESS: PAIN THE PATIENT DESCRIBES THE PAIN... FALL RISK SCREENING: SCREENING :NO FALLS IN THE PAST YEAR CURRENT MEDICATIONS TAKING PEN NEEDLES 29G X 12MM MISCELLANEOUS 1 SUBCUTANEOUSLY ONCE DAILY, NOTES: 0902/07/17 TAKING ASPIR-81 81 MG TABLET DELAYED RELEASE 1 TABLET ORALLY ONCE A DAY, NOTES: 89902/07/17 TAKING OMEPRAZOLE 40 MG CAPSULE DELAYED RELEASE 1 CAPSULE ORALLY ONCE A DAY, NOTES: 89902/07/17 TAKING LATANOPROST 0.005 % SOLUTION 1 DROP INTO AFFECTED EYE IN THE EVENING OPHTHALMIC ONCE A DAY TAKING DIGOXIN 125 MCG TABLET 1 TABLET ORALLY ONCE A DAY, NOTES: 89902/07/17 TAKING IMODIUM A-D 2 MG TABLET 2 TABLET ORALLY ONCE DAILY NEEDED, NOTES: TAKES LOMOTIL FIRST TAKING BD PEN NEEDLE EVELYN U/F 32G X 4 MM MISCELLANEOUS DIRECTED SUBCUTANEOUSLY ONCE DAILY TAKING INSULIN NPH (HUMAN) (ISOPHANE) 100 UNIT/ML SUSPENSION SUBCUTANEOUS SLIDING SCALE, NOTES: YESTERDAY DINNER 02/06/17 TAKING DIAZEPAM 5 MG TABLET 1 TABLET NEEDED ORALLY FOUR TIMES A DAY NEEDED, NOTES: UNSURE TAKING LOMOTIL 2.5-0.025 MG TABLET 1 TABLET NEEDED ORALLY FOUR TIMES A DAY, NOTES: NOT LATELY TAKING NYSTATIN 003680 UNIT/GM POWDER 1 TO AFFECTED AREA EXTERNALLY TWICE A DAY TAKING PROZAC 40 MG CAPSULE 1 CAPSULE IN THE MORNING ORALLY ONCE A DAY, NOTES: 0900 TAKING ATENOLOL 50 MG TABLET 1 TABLET ORALLY ONCE A DAY, NOTES: 09 TAKING NYSTATIN-TRIAMCINOLONE 372119-6.1 UNIT/GM CREAM 1 APPLICATION TO AFFECTED AREA EXTERNALLY TWICE A DAY TAKING FLUCONAZOLE 150 MG TABLET 1 TABLET ORALLY TAKE ONE AND REPEAT IN ONE WEEK, NOTES: 0900 TAKING OXYCODONE HCL 5 MG TABLET 1 TABLET ORALLY EVERY 8 HR PRN MDD3, NOTES: LAST NIGHT TAKING PROBIOTIC - CAPSULE 1 CAPSULE ORALLY TWICE A DAY, NOTES: NOT LATELY NOT-TAKING TIZANIDINE HCL 2 MG TABLET 1 TABLET NEEDED ORALLY THREE TIMES A DAY NOT-TAKING BETAMETHASONE DIPROPIONATE 0.05 % CREAM 1 APPLICATION TO AFFECTED AREA EXTERNALLY ONCE A DAY NOT-TAKING TRESIBA FLEXTOUCH 200 UNIT/ML SOLUTION PEN-INJECTOR 90 UNITS SUBCUTANEOUS DAILY NOT-TAKING ZETIA 10 MG TABLET 1 TABLET ORALLY ONCE A DAY NOT-TAKING TRESIBA 200 U/ML 90 UNITS SUBCUTANEOUSLY BEFORE SUPPER, NOTES: 08/13/16 1800-ON LIST TWICE NOT-TAKING MACROBID 100 MG CAPSULE 1 CAPSULE WITH FOOD ORALLY EVERY 12 HRS NOT-TAKING JAILYN-SYNEPHRINE 1 % SOLUTION 1 DROP IN EACH NOSTRIL NEEDED NASALLY EVERY 4 HRS, NOTES: 08/13/16 2200 NOT-TAKING LORATADINE 10 MG TABLET 1 TABLET ORALLY ONCE A DAY, NOTES: 2-3 DAYS MEDICATION LIST REVIEWED AND RECONCILED WITH THE PATIENT PAST MEDICAL HISTORY HYPERTENSION DM GERD CAD- OR 2010 HYPERLIPIDEMIA INSOMNIA ANXIETY ATRIAL FLUTTER DX IN 2015- DR LAGUERRE GLAUCOMA ALLERGIES TETANUS IMMUNE GLOBULIN: STIFFNESS NECK AND ARM: ALLERGY TYLENOL: HIVES: ALLERGY HYDROCHLOROTHIAZIDE: HIVES: ALLERGY STAWBERRIES: ANAPHYLAXIS: ALLERGY DILTIAZEM CD: UNKNOWN: ALLERGY METOPROLOL TARTRATE: UNKNOWN: ALLERGY LISINOPRIL: UNKNOWN: ALLERGY BENZOCAINE: UNKNOWN: ALLERGY LIPITOR: EAR PROBLEMS: SIDE EFFECTS SIMVASTATIN: MYALGIA: SIDE EFFECTS CRESTOR: MYALGIA: SIDE EFFECTS BYDUREON: NAUSEA/VOMITNG: SIDE EFFECTS ACTOS: HX OF PANCREATITIS: ALLERGY DUST AND DUST MITES: SINUS CONGESTION: ALLERGY REVIEW OF SYSTEMS CONSTITUTIONAL: ANY CHANGE IN YOUR MEDICAL CONDITION? NO . CHILLS NO . FEVER NO . INFECTION: DO YOU HAVE NEW INFECTIONS? NO . DO YOU HAVE HISTORY OF MRSA? NO . MUSCULOSKELETAL: ANY NEW PATTERNS OF PAIN OR NUMBNESS? YES . GASTROENTEROLOGY: ANY NEW CHANGE IN BOWEL CONTROL? NO . GENITOURINARY: ANY NEW CHANGE IN BLADDER CONTROL? NO . IS THERE A CHANCE YOU COULD BE ? NO . HEMATOLOGY/LYMPH: DO YOU TAKE ANY BLOOD THINNERS? (FOR EXAMPLE- COUMADIN, PLAVIX, AGGRENOX, PLATEL, PRADAXA, OR XARELTO) NO . WHEN WAS YOUR LAST DOSE? DATE: TIME: . NEUROLOGY: HAVE YOU FALLEN IN THE PAST 6 MONTHS? YES . ANY NEW EXTREMITY NUMBNESS OR WEAKNESS? NO . CARDIOLOGY: DO YOU HAVE A PACEMAKER OR DEFIBRILLATOR? NO . RESPIRATORY: HAVE YOU BEEN SICK IN THE PAST WEEK? NO . FEVER NO . FLU LIKE SYMPTOMS? NO . COUGH NO . INTEGUMENTARY: DO YOU HAVE ANY RASHES OR OPEN SORES? NO . ALLERGIC/IMMUNO: ARE YOU ALLERGIC TO SHELLFISH OR IV DYE? NO . ANY NEW ALLERGIES? NO . PSYCHIATRIC: DO YOU HAVE THOUGHTS OF HURTING YOURSELF OR SOMEONE ELSE? NO . ARE YOU ABUSED, NEGLECTED, OR IN AN UNSAFE ENVIRONMENT? NO . ENDOCRINOLOGY: ARE YOU DIABETIC? YES . OTHER: DO YOU NEED ANY PRESCRIPTIONS? NO . IF YES, PLEASE LIST: ____ . ANY NEW PROBLEMS WITH YOUR MEDICATIONS? NO . WHEN DID YOU LAST EAT? LAST EVENING . WHEN DID YOU LAST DRINK? 2 HOURS AGO . WHAT DID YOU LAST DRINK? WATER . NAME OF PERSON DRIVING YOU HOME? KRISTIN . DO YOU HAVE ANY OTHER QUESTIONS OR CONCERNS RIGHT BIG TOE PAIN . REVIEWED BY: PROVIDER: . VITAL SIGNS WT 202.0 LBS, HT 62 IN, BMI 36.94 INDEX, BP 137/66 MM HG, HR 63 /MIN, RR 18 /MIN, TEMP 97.0 F, OXYGEN SAT % 96%, NA INITIALS TL 1253, REVIEWED BY: NL. ASSESSMENTS SPONDYLOSIS WITHOUT MYELOPATHY OR RADICULOPATHY, LUMBAR REGION - M47.816 (PRIMARY) SPONDYLOSIS WITHOUT MYELOPATHY OR RADICULOPATHY, LUMBOSACRAL REGION - M47.817 PROCEDURES PN LUMBAR FACET BLOCK THERAPEUTIC PRE PROCEDURE DIAGNOSIS LUMBAR SPONDYLOSIS, LUMBOSACRAL SPONDYLOSIS POST PROCEDURE DIAGNOSIS LUMBAR SPONDYLOSIS, LUMBOSACRAL SPONDYLOSIS PROCEDURE BILATERAL L4-L5 AND L5-S1 LUMBAR FACET THERAPEUTIC BLOCK SURGEON DR. JOHN MITCHELL NETWORK TECHNICIAN NONE ANESTHESIA LOCAL PRE PROCEDURE NOTE THE PATIENT HAS A HISTORY OF CHRONIC LOW BACK PAIN. I EVALUATE THE PATIENT AND REVIEWED THE CHART. I WENT OVER THE RISKS, ALTERNATIVES, AND BENEFITS ASSOCIATED WITH THIS PROCEDURE. THE PATIENT WOULD LIKE TO PROCEED AND GIVE CONSENT TO PERFORMED THE PROCEDURE. THE PATIENT DENIES UNEXPLAINABLE WEIGHT LOSS, FEVER, CHILLS, OR NEW CHANGES IN URINARY OR BOWEL CONTROL DESCRIPTION OF PROCEDURE THE PATIENT WAS BROUGHT TO THE PROCEDURE ROOM AND PLACED IN THE PRONE POSITION. THE LUMBOSACRAL AREA WAS CLEANED WITH CHLORAPREP SOLUTION AND DRAPED ASEPTICALLY. THE PROCEDURE WAS DONE UNDER STERILE CONDITIONS. I CHECKED LATERALITY AND THE LEVEL WHERE THE PROCEDURE WAS GOING TO BE PERFORMED WITH THE PATIENT AND THE SUPPORTING STAFF AT THE MOMENT OF THE TIME OUT IN THE PROCEDURE ROOM. UNDER FLUOROSCOPIC GUIDANCE, THE TARGET POINT WAS SELECTED AT THE RIGHT AND LEFT L4-L5 AND L5-S1 FACET JOINT. TARGET POINT WAS SELECTED AFTER LATERAL ROTATION AND TILT OF THE MAGNIFIER OF THE C-ARM. LIDOCAINE 0.5% WAS USED TO NUMB THE SKIN AND THE SUBCUTANEOUS TISSUE BELOW IT. SPINAL NEEDLES, 22-GAUGE, WERE ADVANCED UNDER FLUOROSCOPIC GUIDANCE AND FOLLOWING PATIENT FEEDBACK UNTIL THE TARGETS WERE TOUCHED. THE POSITION OF THE NEEDLES WAS VERIFIED WITH AP AND LATERAL VIEWS. AFTER PROPER POSITION OF THE NEEDLES WAS ACHIEVED, ISOVUE-M DYE 30% 0.1 ML WAS INJECTED SHOWING ADEQUATE SPREAD OF THE DYE. THEN A SOLUTION OF 1.9 ML OF BUPIVACAINE 0.125% OF KENALOG 10 MG WAS INJECTED AT EACH SITE. THERE WAS NO EVIDENCE OF BLOOD, PARESTHESIA OR CEREBROSPINAL FLUID DURING THE PROCEDURE. THE PATIENT WAS SENT TO THE RECOVERY ROOM. THE PATIENT WAS MOVING THE EXTREMITIES AND DOING WELL. THERE WAS NO COMPLICATION DURING THE PROCEDURE. FLUOROSCOPY TIME WAS 16 SECONDS POST PROCEDURE NOTE THE PATIENT WILL BE SEEN IN A FOLLOW UP IN THE NEXT FEW WEEKS. INSTRUCTIONS WERE GIVEN, QUESTIONS WERE ANSWERED, AND THE PATIENT EXPRESSED UNDERSTANDING AND AGREES WITH THE PLAN. I, ROLO RILEY, DOCUMENTED THE ABOVE INFORMATION ACTING A SCRIBE FOR DR. MITCHELL. I HAVE REVIEWED THE ABOVE DOCUMENT, WRITTEN BY ROLO RILEY SCRIBE AND I VERIFY THAT IT IS ACCURATE DIAGNOSTIC IMAGING [facility] FACET BLOCK (PAIN)[id number] PROCEDURE CODES 20759 INJ PARAVERT F JNT L/S 1 LEV 75254 INJ PARAVERT F JNT L/S 2 LEV 6045F RADXPS IN END [id number] PXD DISPOSITION & COMMUNICATION FOLLOW UP 3 WEEKS ELECTRONICALLY SIGNED BY JOHN MITCHELL MD ON 02/12/2017 AT 11:24 AM EDT DISCLAIMER : THIS IS A VISIT SUMMARY EXTRACTED FROM THE [employer] CHART. IT IS NOT A COPY OF THE [employer] PROGRESS NOTE. MTDD
== END ==
LOC: M PAIN 12:40
PROVIDERS: ATTEND Anesthesiology
DX: G89.29 Other chronic pain (principal); M47.816 Spondylosis without myelopathy or radiculopathy, lumbar region; M47.817 Spondylosis without myelopathy or radiculopathy, lumbosacral region; I10 Essential (primary) hypertension; E11.9 Type 2 diabetes mellitus without complications; K21.9 Gastro-esophageal reflux disease without esophagitis; I25.2 Old myocardial infarction; E78.5 Hyperlipidemia, unspecified; G47.00 Insomnia, unspecified; F41.9 Anxiety disorder, unspecified; Z88.7 Allergy status to serum and vaccine; Z88.6 Allergy status to analgesic agent; Z88.8 Allergy status to other drugs, medicaments and biological substances; Z91.018 Allergy to other foods; J30.89 Other allergic rhinitis; Z79.82 Long term (current) use of aspirin; Z79.4 Long term (current) use of insulin; Z79.899 Other long term (current) drug therapy
CPT/HCPCS: 64493; 64494; J3301; Q9967

== ENCOUNTER → 2017-03-08 | Outpatient (CLI) | payer MEDICARE, BC, OTHER ==
[~2017-03-08] MED LIST changes: +AMLO5TAB2 PO; +ASPI81CH PO; +ASPI81TA85 PO; +ATEN50TA2 PO; +BESI0.6S OU; +BETA0.053 EX; +BRIM1OPD OU; -BUPIVACAINE HCL 0.25% 30 ML VIAL As Ordered ONE; +CAND4TAB PO; +DEPA250T32 PO; +DIAZ10TA2 PO; +DIAZ1CON PO; +DIGO0.12 PO; +FLUO20CA8 PO; +INSUH10VL SC; +INSUNSD SC; -ISOVUE-M 300 61% 15ML VIAL (Q9967) As Ordered ONE; +LAMI1TAB6 PO; +LATA5OPD OU; -LIDOCAINE 1% SDV INJ 30 ML VIAL As Ordered ONE; +NYST1POW9 TOP; +OMEP40CA2 PO; +OXYC-517 PO; +OXYC1SOL3 PO; +PREDOPD OU; +PRIL20CA9 PO; -TRIAMCINOLONE ACETONIDE SUSP 40 MG/ML VIAL (J3301) As Ordered ONE; +VENL75CA2 PO; +ZANA2CAP PO; -diazePAM 5 MG TAB As Ordered ONE; -oxyCODONE 5MG TAB As Ordered ONE
--- NOTE | 2017-03-28 01:37 | ECWPNPC ---
PATIENT NAME: BRYAN PENG : 1945 GENDER: FEMALE VISIT DATE: 03/08/2017 DISCHARGE DATE: 03/08/17 1510 VISIT LOCKED DATE TIME: PHYSICIAN: PIETRO ANDUJAR RESOURCE: PIETRO ANDUJAR REASON FOR APPOINTMENT 1. POST FACET BLOCK HISTORY OF PRESENT ILLNESS HISTORY OF PRESENT ILLNESS: PAIN THE PATIENT DESCRIBES THE PAIN... FALL RISK SCREENING: SCREENING :NO FALLS IN THE PAST YEAR TODAY'S VISIT: NOTES: S/P BILATERAL THERAPEUTIC LUMBAR FACET BLOCK AT L4-5 AND L5-S1 ON 02/07/17. STATES SHE HAS HAD SIGNIFICANT IMPROVEMENT IN PAIN ACROSS THE LOW BACK RATES PAIN TODAY 2-3/10. TODAY WORST PAIN IS IN RIGHT KNEE. IS HAVING A GREAT DEAL OF PROBLEM WITH ANXIETY AND CAN NOT SLEEP AND FREQ CRYING. STATES THAT HER MENTAL HEALTH PROVIDER HAS STOPPED HER VALIUM.. CURRENT MEDICATIONS TAKING PEN NEEDLES 29G X 12MM MISCELLANEOUS 1 SUBCUTANEOUSLY ONCE DAILY TAKING ASPIR-81 81 MG TABLET DELAYED RELEASE 1 TABLET ORALLY ONCE A DAY TAKING OMEPRAZOLE 40 MG CAPSULE DELAYED RELEASE 1 CAPSULE ORALLY ONCE A DAY TAKING LATANOPROST 0.005 % SOLUTION 1 DROP INTO AFFECTED EYE IN THE EVENING OPHTHALMIC ONCE A DAY TAKING DIGOXIN 125 MCG TABLET 1 TABLET ORALLY ONCE A DAY TAKING IMODIUM A-D 2 MG TABLET 2 TABLET ORALLY ONCE DAILY NEEDED TAKING BD PEN NEEDLE EVELYN U/F 32G X 4 MM MISCELLANEOUS DIRECTED SUBCUTANEOUSLY ONCE DAILY TAKING INSULIN NPH (HUMAN) (ISOPHANE) 100 UNIT/ML SUSPENSION SUBCUTANEOUS SLIDING SCALE TAKING DIAZEPAM 5 MG TABLET 1 TABLET NEEDED ORALLY TWICE A DAY TAKING LOMOTIL 2.5-0.025 MG TABLET 1 TABLET NEEDED ORALLY FOUR TIMES A DAY TAKING NYSTATIN [id number] UNIT/GM POWDER 1 TO AFFECTED AREA EXTERNALLY TWICE A DAY TAKING PROZAC 40 MG CAPSULE 1 CAPSULE IN THE MORNING ORALLY ONCE A DAY TAKING ATENOLOL 50 MG TABLET 1 TABLET ORALLY ONCE A DAY TAKING OXYCODONE HCL 5 MG TABLET 1 TABLET ORALLY EVERY 8 HR PRN MDD3 TAKING PROBIOTIC - CAPSULE 1 CAPSULE ORALLY TWICE A DAY TAKING SANTYL 250 UNIT/GM OINTMENT 1 APPLICATION TO AFFECTED AREA EXTERNALLY ONCE A DAY TAKING NYSTATIN-TRIAMCINOLONE 325507-6.1 UNIT/GM CREAM 1 APPLICATION TO AFFECTED AREA EXTERNALLY TWICE A DAY TAKING FLUCONAZOLE 150 MG TABLET 1 TABLET ORALLY TAKE ONE AND REPEAT IN ONE WEEK PAST MEDICAL HISTORY HYPERTENSION DM GERD CAD- [place] 2010 HYPERLIPIDEMIA INSOMNIA ANXIETY ATRIAL FLUTTER DX IN 2016- DR LAGUERRE GLAUCOMA ALLERGIES TETANUS IMMUNE GLOBULIN: STIFFNESS NECK AND ARM: ALLERGY TYLENOL: HIVES: ALLERGY HYDROCHLOROTHIAZIDE: HIVES: ALLERGY STAWBERRIES: ANAPHYLAXIS: ALLERGY DILTIAZEM CD: UNKNOWN: ALLERGY METOPROLOL TARTRATE: UNKNOWN: ALLERGY LISINOPRIL: UNKNOWN: ALLERGY BENZOCAINE: UNKNOWN: ALLERGY LIPITOR: EAR PROBLEMS: SIDE EFFECTS SIMVASTATIN: MYALGIA: SIDE EFFECTS CRESTOR: MYALGIA: SIDE EFFECTS BYDUREON: NAUSEA/VOMITNG: SIDE EFFECTS ACTOS: HX OF PANCREATITIS: ALLERGY DUST AND DUST MITES: SINUS CONGESTION: ALLERGY REVIEW OF SYSTEMS REVIEWED BY: PROVIDER: PIETRO FELICIANO . CONSTITUTIONAL: ANY CHANGE IN YOUR MEDICAL CONDITION? NO . CHILLS NO . FEVER NO . INFECTION: DO YOU HAVE NEW INFECTIONS? NO . DO YOU HAVE HISTORY OF MRSA? NO . MUSCULOSKELETAL: ANY NEW PATTERNS OF PAIN OR NUMBNESS? NO . GASTROENTEROLOGY: ANY NEW CHANGE IN BOWEL CONTROL? NO . GENITOURINARY: ANY NEW CHANGE IN BLADDER CONTROL? NO . IS THERE A CHANCE YOU COULD BE ? NO . HEMATOLOGY/LYMPH: DO YOU TAKE ANY BLOOD THINNERS? (FOR EXAMPLE- COUMADIN, PLAVIX, AGGRENOX, PLATEL, PRADAXA, OR XARELTO) NO . WHEN WAS YOUR LAST DOSE? DATE: TIME: . NEUROLOGY: HAVE YOU FALLEN IN THE PAST 6 MONTHS? NO . ANY NEW EXTREMITY NUMBNESS OR WEAKNESS? NO . CARDIOLOGY: DO YOU HAVE A PACEMAKER OR DEFIBRILLATOR? NO . RESPIRATORY: HAVE YOU BEEN SICK IN THE PAST WEEK? NO . FEVER NO . FLU LIKE SYMPTOMS? NO . COUGH NO . INTEGUMENTARY: DO YOU HAVE ANY RASHES OR OPEN SORES? YES . ALLERGIC/IMMUNO: ARE YOU ALLERGIC TO SHELLFISH OR IV DYE? NO . ANY NEW ALLERGIES? NO . PSYCHIATRIC: DO YOU HAVE THOUGHTS OF HURTING YOURSELF OR SOMEONE ELSE? NO . ARE YOU ABUSED, NEGLECTED, OR IN AN UNSAFE ENVIRONMENT? NO . ENDOCRINOLOGY: ARE YOU DIABETIC? YES . OTHER: DO YOU NEED ANY PRESCRIPTIONS? NO . IF YES, PLEASE LIST: ____ . ANY NEW PROBLEMS WITH YOUR MEDICATIONS? NO . WHEN DID YOU LAST EAT? ____ . WHEN DID YOU LAST DRINK? ____ . WHAT DID YOU LAST DRINK? ____ . NAME OF PERSON DRIVING YOU HOME? ____ . DO YOU HAVE ANY OTHER QUESTIONS OR CONCERNS NO . VITAL SIGNS WT 190.2 LBS, HT 62 IN, BMI 34.78 INDEX, BP 177/81 MM HG, HR 61 /MIN, RR 18 /MIN, TEMP 96.0 F, OXYGEN SAT % 97%, NA INITIALS SC 14:27. EXAMINATION GENERAL EXAMINATION: GENERAL APPEARANCE:COLOR PALE. PSYCHALERT , ORIENTED X 3 EMOTIONALLY LABILE, TREMULOUS. LUNGS:CLEAR TO AUSCULTATION BILATERALLY, NO WHEEZES RALES OR RHONCHI. HEART:HEART RATE REGULAR. MUSCULOSKELETAL:POINT TENDERNESS OVER LUMBAR SPINOUS PROCESSES AND ACROSS THE LUMBOSACRAL AXIS. TENDERNESS WITH PALPATION OVER THE RIGHT SACROILIAC JOINT.. NO FOOT DROP NOTED. SLOW TO RISE TO A STANDING POSITION. POSTURE UPRIGHT. GAIT SLOW AND MILDLY ANTALGIC. , TRIGGER POINTS AND TIGHT FIBROUS BANDS IDENTIFIED OVER LUMBOSACRAL MUSCULATURE. DECREASED ROM WITH FLEXIOON AND ROTATION. EXTREMITIES:FEET DUSKY BLUE IN COLOR, NO EDEMA. ASSESSMENTS INTERVERTEBRAL DISC DISORDERS WITH RADICULOPATHY, LUMBAR REGION - M51.16 (PRIMARY) LUMBAGO DUE TO DISPLACEMENT OF INTERVERTEBRAL DISC - M51.26 TREATMENT INTERVERTEBRAL DISC DISORDERS WITH RADICULOPATHY, LUMBAR REGION NOTES: WALK EVERY DAY. TALK TO MENTAL HEALTH PROVIDER ABOUT DEPRESSION, SLEEP, AND ANXIETYTALK TO DR CORDOBA ABOUT SKIN RASH AT GROIN AND UNDER BREASTS. CLINICAL NOTES: ISTOP REGISTRY REVIEWED AND DEMNOSTRATES COMPLLIANCE. BRINGS IN MEDICATIONS WHICH IS APPROPRIATE FOR WHAT WAS DISPENSED. RECENT URINE TOXICOLOGY REVIEWED. NO UNAUTHORIZED MEDICATIONS. NO ILLICIT SUBSTANCES AND PRESCRIBED MEDICATIONS WERE PRESENT. PROCEDURE CODES FA211 ESTABILISHED PATIENT [facility] FACILITY CHARGE G8730 PAIN ASSESS POS TOOL F/U PLAN DOC G8427 DOC MEDS VERIFIED W/PT OR RE DISPOSITION & COMMUNICATION FOLLOW UP 3 MONTHS (REASON: BACK PAIN) ELECTRONICALLY SIGNED BY LORENA LOPEZ ON 03/27/2017 AT 06:09 PM EDT DISCLAIMER : THIS IS A VISIT SUMMARY EXTRACTED FROM THE [employer] CHART. IT IS NOT A COPY OF THE [employer] PROGRESS NOTE. DUNG
== END ==
LOC: M PAIN 14:20
PROVIDERS: ATTEND Nurse Practitioner Family
DX: G89.29 Other chronic pain (principal); M51.16 Intervertebral disc disorders with radiculopathy, lumbar region; M51.26 Other intervertebral disc displacement, lumbar region; I10 Essential (primary) hypertension; E11.9 Type 2 diabetes mellitus without complications; K21.9 Gastro-esophageal reflux disease without esophagitis; E78.5 Hyperlipidemia, unspecified; G47.00 Insomnia, unspecified; F41.9 Anxiety disorder, unspecified; Z88.7 Allergy status to serum and vaccine; Z88.6 Allergy status to analgesic agent; Z91.018 Allergy to other foods; Z88.8 Allergy status to other drugs, medicaments and biological substances; J30.89 Other allergic rhinitis

== ENCOUNTER 2017-05-10 20:04 | Inpatient (IN) | payer MEDICARE, BC, OTHER ==
[~2017-05-10] VITALS: Ht 160 cm; Wt 80.4 kg
[2017-05-10] MEDS ORDERED: LATA5OPD OU (21:02)
[2017-05-10] MEDS ORDERED: FLUO20CA8 PO (21:02)
[2017-05-10] MEDS ORDERED: PRIL20CA9 PO (21:02)
[2017-05-10] MEDS ORDERED: LAMI1TAB6 PO (21:02)
[2017-05-10] MEDS ORDERED: BETA0.053 EX (21:02)
[2017-05-10] MEDS ORDERED: OXYC1SOL3 PO (21:02)
[2017-05-10] MEDS ORDERED: ZANA2CAP PO (21:02)
[2017-05-10] MEDS ORDERED: ATEN50TA2 PO (21:02)
[2017-05-10] MEDS ORDERED: ASPI81TA85 PO (21:02)
[2017-05-10] MEDS ORDERED: INSUNSD SC (21:02)
[2017-05-10] MEDS ORDERED: DIAZ1CON PO (21:02)
[2017-05-10] MEDS ORDERED: DIGO0.12 PO (21:02)
[2017-05-10 22:09] LABS: VENOUS BASE EXCESS 1.7 (-2.0-2.0); VENOUS O2 SATURATION 60.2 % (60.0-80.0); VENOUS PARTIAL PRESSURE CO2 41.4 mmHg (38.0-50.0); VENOUS TOTAL CO2 27.6 MEQ/L (24.0-28.0)
[2017-05-10 22:10] LABS: BASO % 0.4 % (0.0-1.0); EOS # 0.2 K/mm3 (0.0-0.50); EOS % 2.8 % (0.0-3.0); LARGE UNSTAINED CELL # 0.1 K/mm3 (0.0-0.4); LARGE UNSTAINED CELL % 1.2 % (0.0-4.0); LYMPH % 21.6 % (24.0-44.0); MEAN CORPUSCULAR HEMOGLOBIN 28.1 pg (27.0-33.0); MEAN CORPUSCULAR HGB CONC 32.8 g/dl (32.0-36.5); MEAN CORPUSCULAR VOLUME 85.8 fl (80.0-96.0); MONO # 0.5 K/mm3 (0.0-0.8); MONO % 5.2 % (0.0-5.0); NEUTROPHILS % 68.8 % (36.0-66.0); PLATELET COUNT, AUTOMATED 270 k/mm3 (150-450); RED CELL DISTRIBUTION WIDTH 15.4 % (11.5-14.5); WHITE BLOOD COUNT 8.8 K/mm3 (4.0-10.0)
[2017-05-10 22:36] LABS: OSMOLALITY SERUM 295 MOSM/KG (280-301)
[2017-05-10 22:37] LABS: METHADONE URINE NEGATIVE (NEGATIVE)
--- NOTE | 2017-05-10 22:40 | REPUSA ---
CT of the head Clinical history: altered mental status. Protocol: Multiple axial CT images obtained with 5 mm slice thickness were obtained through the head without administration of contrast. Findings: The ventricles and sulci are symmetric but prominent in size bilaterally. There are periven tricular areas of low attenuation throughout the deep white matter. There is no evidence of acute hem orrhage or infarct. There is no midline shift, mass effect, or extra-axial fluid collection. The osse ous structures are unremarkable. The visualized paranasal sinuses and mastoid air cells are clear. Impression: No acute hemorrhage or infarct. Findings are consistent with age-related atrophy and manager internal carolin small vessel ischemic disease.
[2017-05-10 22:42] LABS: ALBUMIN 3.6 GM/DL (3.2-5.2); ALBUMIN/GLOBULIN RATIO 1.44 (1.00-1.93); ALKALINE PHOSPHATASE 117 U/L (45-117); ALT/SGPT 29 U/L (12-78); ANION GAP 6 MEQ/L (8-16); AST/SGOT 17 U/L (15-37); BILIRUBIN,DIRECT < 0.1 MG/DL (0.0-0.2); BILIRUBIN,TOTAL 0.4 MG/DL (0.2-1.0); BLOOD UREA NITROGEN 15 MG/DL (7-18); CALCIUM LEVEL 9.8 MG/DL (8.8-10.2); CARBON DIOXIDE LEVEL 30 MEQ/L (21-32); CHLORIDE LEVEL 107 MEQ/L (98-107); CREATININE FOR GFR 0.55 MG/DL (0.55-1.02); GLOMERULAR FILTRATION RATE > 60.0 (>39); GLUCOSE, FASTING 70 MG/DL (83-110); POTASSIUM SERUM 3.7 MEQ/L (3.5-5.1); SODIUM LEVEL 143 MEQ/L (136-145); TOTAL PROTEIN 6.1 GM/DL (6.4-8.2)
[2017-05-10 22:52] LABS: DIGOXIN LEVEL 1.2 NG/ML (0.5-2.0)
[2017-05-11] VITALS (9 sets, daily range): BP systolic 135–196; BP diastolic 60–92
[2017-05-11] MEDS ORDERED: NYST1POW9 TOP (00:54)
[2017-05-11] MEDS ORDERED: BRIM1OPD OU (00:54)
[2017-05-11] MEDS ORDERED: BESI0.6S OU (00:54)
[2017-05-11] MEDS ORDERED: ASPI81CH PO (00:54)
[2017-05-11] MEDS ORDERED: PREDOPD OU (00:54)
[2017-05-11] MEDS ORDERED: DIAZ10TA2 PO (00:54)
[2017-05-11] MEDS ORDERED: INSUH10VL SC (00:54)
[2017-05-11] MEDS ORDERED: OXYC-517 PO (00:54)
[2017-05-11] MEDS ORDERED: OMEP40CA2 PO (00:54)
[2017-05-11] MEDS ORDERED: GLUCOSE 4 GM CHEW TABLET PO PRN (01:00)
[2017-05-11] MEDS ORDERED: ONDANSETRON 4MG/2ML VIAL (J2405) IV PRN (01:00)
[2017-05-11] MEDS ORDERED: GLUCAGON FOR INJ 1 MG VIAL (J1610) SC PRN (01:00)
[2017-05-11] MEDS ORDERED: DEXTROSE 50% 50 ML SYRINGE IV PRN (01:00)
[2017-05-11] MEDS ORDERED: amLODIPine 5 MG TAB As Ordered ONE (03:55)
[2017-05-11] MEDS ORDERED: amLODIPine 5 MG TAB PO ONE (04:00)
[2017-05-11] MEDS: HumaLOG INSULIN (NovoLOG) PER UNIT SC SCH ×4 (07:30→21:00)
[2017-05-11] MEDS: ATENOLOL 50 MG TAB PO SCH (09:00)
[2017-05-11 09:03] LABS: VITAMIN B12 LEVEL 329 PG/ML (247-911)
[2017-05-11] MEDS: ASPIRIN 81 MG CHEW TABLET PO SCH (09:41)
[2017-05-11] MEDS: OMEPRAZOLE 20 MG CAP PO SCH (09:41)
[2017-05-11] MEDS: ENOXAPARIN 40 MG/0.4 ML SYRINGE (J1650) SC SCH (09:41)
[2017-05-11] MEDS: FLUoxetine 20 MG CAP PO SCH (09:41)
[2017-05-11] MEDS: DIGOXIN 0.125 MG TAB PO SCH (09:45)
[2017-05-11] MEDS: prednisoLONE ACET 1% OPHTH SUSP 5ML OU SCH ×4 (09:47→21:43)
[2017-05-11] MEDS: BRIMONIDINE 0.1% OPHTH SOLN 5 ML OU SCH ×2 (09:47→21:43)
[2017-05-11] MEDS: NYSTATIN 100,000 UNITS/GM TOPICAL PWD 15 GM TOP SCH ×2 (09:48→21:43)
--- NOTE | 2017-05-11 10:40 | ECGEPIP ---
Stationary ECG Study [facility] - ED Test Date: 2017-05-10 Pat Name: BRYAN PENG Department: Room: [place] [address] Gender: F [employer]obile [employer]izer: ace : 1945 Requested By: RICHIE Marley Order Number: [id number] Reading MD: Sarah Whaley Measurements Intervals Dixon Rate: 53 P: 29 WV: 164 QRS: 9 QRSD: 117 T: 117 QT: 415 QTc: 393 Interpretive Statements SINUS BRADYCARDIA INFERIOR MYOCARDIAL INFARCTION, ?AGE, CLINICAL CORRELATION NSTTW ABNORMALITY NO PRIOR FOR COMPARISON Electronically Signed On 05-11-2017 10:40:24 EDT by Sarah Whaley
--- NOTE | 2017-05-11 10:51 | REP ---
Portable chest x-ray: Sitting AP view. History: Altered mental status. Comparison study: November 16, 2016. Findings: The left hemidiaphragm remains quite elevated. The patient is status post median sternotomy. Heart size is mildly prominent. Lung orellana are otherwise clear. Pulmonary vasculature is not increased. Impression: No acute disease. Elevated left hemidiaphragm. Prior sternotomy. Signed by Kodak Gerardo MD 05/11/2017 08:36 A
--- NOTE | 2017-05-11 10:51 | HPE ---
DATE OF ADMISSION: 05/10/2017 PRIMARY CARE PROVIDER: Dr. Caldwell. HEAD OF ADVERTISING: Dr. Dias. CHIEF COMPLAINT: Falls. HISTORY OF PRESENT ILLNESS: The patient is a 72-year-old female who reportedly called her telemetry tech. She had a cataract surgery completed a week ago and complained to her telemetry tech that she had been having falls. The telemetry tech recommended that if she had been having falls, then she should present to the emergency room, so she did call 911 and was brought to the emergency room. While in the emergency room, she initially reported that she had been falling, but she had been falling since the age of 19; however, it worsened in recent months. As per Dr Caldwell's most recent notes, a referral to neurology had been made. The patient is yet to be seen. As per emergency department (ED) providers , the patient had been suffering from anterograde amnesia and had repeatedly been asking where she was. At the time of my exam, she was awake, alert and oriented times three, as well as to the situation. I did check on her again half an hour later and she remains oriented and remembers our previous conversation. She carries paperwork with her from a visit at [facility] on 05/08. At that time, as per the summary, she was seen in their emergency room for falls. She was seen and evaluated by a neurologist there. It was thought she had anterograde amnesia and was actually discharged home. The patient lives with her 47-year-old son. There are no other local relatives to help care for her. She complains of chronic back pain, but otherwise is in her usual state of health. She denies prodromal symptoms prior to her falls, but admits she does not remember them very well. PAST MEDICAL HISTORY: 1. Hypertension. 2. Chronic low back pain. 3. Coronary artery disease status post coronary artery bypass graft (CABG). 4. Anxiety. 5. Insomnia. 6. Atrial flutter. 7. Gastroesophageal reflux disease. 8. Insulin-dependent diabetes. ALLERGIES: ACETAMINOPHEN, HYDROCHLOROTHIAZIDE, ACTOS, TETANUS IMMUNOGLOBULIN, LISINOPRIL, DILTIAZEM, STRAWBERRIES, BENZOCAINE, LIPITOR, SIMVASTATIN. SURGICAL HISTORY: 1. Left knee arthroscopy. 2. Left total knee replacement. 3. Right carpal tunnel release. 4. Hysterectomy. 5. CABG times five in 2010. 6. Colonoscopy in November of 2016. SOCIAL HISTORY: She is a former smoker, but denies alcohol or illicit drug use. She is retired and her adult 47-year-old son lives with her, but he recently had a strained tendon while working out in the gym. She denies alcohol or illicit drug use. She denies any new medications. HOME MEDICATIONS: - NovoLog before food - oxycodone 5 mg three times a day as needed for pain - Besivance 0.6% solution both eyes twice a day - aspirin 81 mg daily - atenolol 50 mg daily - Alphagan P both eyes twice a day - diazepam 10 mg by mouth three times a day as needed for anxiety - digoxin 0.125 mg daily - fluoxetine 40 mg daily - latanoprost both eyes nightly one drop - nystatin powder 1000 units topical twice a day - omeprazole 40 mg daily - prednisolone acetate one drop OU PHYSICAL EXAMINATION: VITAL SIGNS: stabe GENERAL: She is an obese elderly woman lying on her right side. She does not appear to be in any acute distress. Her right eye is covered and taped. Otherwise cranial nerves II-XII are grossly intact. No elevation in central venous pressure (CVP). NEUROLOGICAL: Exam is nonfocal. Patient appeared to be intact. CARDIOVASCULAR EXAM: S1, S2, appears to be regular with distant heart sounds. RESPIRATORY EXAM: Clear. ABDOMINAL EXAM: Soft, nontender. EXTREMITIES: No clubbing, cyanosis or edema. LABORATORY STUDIES: WBC 8.8, hemoglobin 13.3, platelet count 270. Venous blood gas was within normal limits. Chemistry panel: Sodium 143, potassium 3.7, chloride 107, bicarbonate 30, BUN 15, creatinine 0.5, lactic acid 1.1, calcium within normal limits. Liver function tests within normal limits. Ammonia less than 10. One set of cardiac enzymes is negative. TSH was within normal limits. Toxicology is positive for benzodiazepines. IMAGING: She did have a CT scan of her head, which revealed no acute hemorrhage or infarct, chronic small vessel ischemic disease. ASSESSMENT AND PLAN: This is a 72-year-old female with frequent falls and possibly anterograde amnesia. 1. Frequent falls. The patient did have a fall on the . She was seen in [facility] ([facility]) at that time and discharged home. She has been having frequent falls and a referral pending to neurology. This could possibly be multifactorial in nature and certainly worsened by her recent cataract surgery. At this time, I will hold her narcotics. I will continue with benzodiazepines as needed. Have her seen by physical therapy (PT). Will check an electroencephalogram (EEG) given that she is having some new reportedly anterograde amnesia symptoms. I will check an MRI/MRA of the brain. Will check orthostatics including an echocardiogram. She does have atrial flutter. Transient uncontrolled arrhythmia could certainly be contributing. She will be admitted to the progressive care unit for neurological checks on telemetry. Should her symptoms fail to improve, could consider inpatient neurology consultation. 2. Anterograde amnesia. At the present time, at least on my exam, she appears to be completely oriented and she knows the president. She knows the month, the day, and the year and where she is and why she is here. We will check an EEG. She has had a fall with trauma on the and was evaluated by a neurologist at that time. Records available per chart. For now we will continue to monitor. 3. Anxiety. Continue with her as needed benzodiazepines with caution. The patient is on fluoxetine. 4. Atrial flutter. She is on atenolol. We will continue with holding parameters. She is also on digoxin. She is not on any anticoagulation. 5. Insulin-dependent diabetes. She will be on a sliding scale. 6. Recent cataract surgery. Continue with her eye drops. Followup as outpatient as scheduled. 7. Gastroesophageal reflux disease. Continue with omeprazole. 8. Coronary artery disease. She is on aspirin. She is on a beta geovanni. She is unable to tolerate statin secondary to myalgias. 9. Deep venous thrombosis (DVT) prophylaxis. She will be on Lovenox. DISPOSITION: The patient is admitted to progressive care unit to Dr. Tiwari's service, who will continue seeing the patient at 7 a.m. We requested records from Dr. Dias' office. DUNG
[2017-05-11] MEDS ORDERED: traMADol 50 MG TAB PO ONE (13:00)
--- NOTE | 2017-05-11 19:31 | REP ---
MRA BRAIN WITHOUT CONTRAST: HISTORY: Amnesia. 3D TOF MR angiography was performed at the level of the [place]. There is no aneurysm or arteriovenous malformation. Mild atherosclerotic disease involves the cavernous and supraclinoid internal carotid arteries and distal right posterior cerebral artery. Major intracranial vessels are patent. The vertebral arteries are equal in size. IMPRESSION: 1. There is no aneurysm or arteriovenous malformation. 2. Atherosclerotic disease as described above. Signed by Stephen Zimmer MD 05/11/2017 07:46 P
--- NOTE | 2017-05-11 19:43 | REP ---
MR BRAIN WITHOUT CONTRAST: HISTORY: Amnesia. COMPARISON: CT 05/10/2017 A small area of increased signal intensity on T2-weighted images is present in the anterior left temporal lobe. There is dilatation of the overlying cortical sulci. This represents an area of gliosis and encephalomalacia. Areas of increased signal intensity on T2-weighted images are present in the periventricular and subcortical white matter and shelby. This represents small vessel ischemic disease. There is no intraparenchymal hemorrhage, infarct, mass or midline shift. The ventricular system and cortical sulci are dilated consistent with mild volume loss. There is no extracerebral collection. The sinuses are clear. IMPRESSION: 1. Left temporal lobe encephalomalacia. 2. Small vessel ischemic disease. 3. Mild volume loss. Signed by Stephen Zimmer MD 05/11/2017 07:46 P
[2017-05-11] MEDS: LATANOPROST 0.005% OPHTH SOLN 2.5 ML OU SCH (21:43)
[2017-05-12] VITALS (7 sets, daily range): BP systolic 140–191; BP diastolic 74–94
[2017-05-12] MEDS ORDERED: amLODIPine 5 MG TAB PO ONE (00:30)
[2017-05-12] MEDS ORDERED: **hydrALAZINE** 10 MG TAB PO ONE (05:15)
[2017-05-12 05:44] LABS: MEAN CORPUSCULAR HEMOGLOBIN 28.3 pg (27.0-33.0); MEAN CORPUSCULAR HGB CONC 32.3 g/dl (32.0-36.5); MEAN CORPUSCULAR VOLUME 87.4 fl (80.0-96.0); RED CELL DISTRIBUTION WIDTH 15.4 % (11.5-14.5); WHITE BLOOD COUNT 6.9 K/mm3 (4.0-10.0)
[2017-05-12 06:09] LABS: ANION GAP 9 MEQ/L (8-16); BLOOD UREA NITROGEN 13 MG/DL (7-18); CALCIUM LEVEL 9.1 MG/DL (8.8-10.2); CARBON DIOXIDE LEVEL 28 MEQ/L (21-32); CHLORIDE LEVEL 106 MEQ/L (98-107); CREATININE FOR GFR 0.57 MG/DL (0.55-1.02); GLOMERULAR FILTRATION RATE > 60.0 (>39); GLUCOSE, FASTING 141 MG/DL (83-110); SODIUM LEVEL 143 MEQ/L (136-145)
[2017-05-12] MEDS: HumaLOG INSULIN (NovoLOG) PER UNIT SC SCH ×4 (09:45→21:00)
[2017-05-12] MEDS: OMEPRAZOLE 20 MG CAP PO SCH (09:46)
[2017-05-12] MEDS: FLUoxetine 20 MG CAP PO SCH (09:46)
[2017-05-12] MEDS: ASPIRIN 81 MG CHEW TABLET PO SCH (09:46)
[2017-05-12] MEDS: ENOXAPARIN 40 MG/0.4 ML SYRINGE (J1650) SC SCH (09:47)
[2017-05-12] MEDS: ATENOLOL 50 MG TAB PO SCH (09:47)
[2017-05-12] MEDS: BRIMONIDINE 0.1% OPHTH SOLN 5 ML OU SCH ×2 (09:53→21:46)
[2017-05-12] MEDS: prednisoLONE ACET 1% OPHTH SUSP 5ML OU SCH ×4 (09:53→21:46)
[2017-05-12] MEDS: NYSTATIN 100,000 UNITS/GM TOPICAL PWD 15 GM TOP SCH ×2 (09:53→21:47)
[2017-05-12] MEDS: diazePAM 5 MG TAB PO PRN ×2 (09:56→21:46)
[2017-05-12] MEDS: DIGOXIN 0.125 MG TAB PO SCH (10:03)
[2017-05-12] MEDS: NITROGLYCERIN 2% OINT 1 GM *U/D* PKT TOP SCH ×4 (10:08→19:00)
--- NOTE | 2017-05-12 18:35 | IPN ---
DATE: 05/12/2017 Patient is seen and examined at the bedside. The chart has been reviewed. Patient continues to have elevated blood pressure with no complaints of dizziness, chest pain, pressure, or tightness. Afebrile overnight. Telemetry shows sinus rhythm, ventricular rate of 57-72. She is awake, alert, oriented, status post right eye surgery with an eye patch. Lungs are clear to auscultation, no wheezing, rales, or rhonchi. Heart S1, S2, sinus rhythm. Abdomen is soft, nontender, nondistended. Positive bowel sounds. Extremities no cyanosis, clubbing, or pitting edema. Right eye is covered in tape. LABORATORY DATA: Reviewed. IMAGING STUDIES: MRI has no acute CVA. IMPRESSION: This is a 72-year-old female with history of coronary artery disease (CAD), coronary artery bypass graft (CABG), anxiety, atrial flutter, insomnia, reflux, type 2 diabetes, hypertension, chronic low back pain, presented to the emergency room with recurrent falls at home. The patient had cataract surgery a week ago. Was brought into the emergency room due to recurrent falls since the age of 19, worsening in the recent months with anterograde amnesia and repeatedly has been asking where she was. The patient lives with her 47-year-old son, no other relatives. Complains of chronic back pain. MRI of the brain shows no acute CVA. Patient is admitted for the following issues: 1. Frequent falls with possible anterograde amnesia. Patient had a fall on 05/08/2017, was seen in [place] emergency room (ER) and discharged home at that time. The patient has had recent cataract surgery and had been on opioids and currently on as needed benzodiazepine. Patient will need an EEG. MRI/MRA of the brain unremarkable. Echocardiogram ordered due to history of atrial flutter. Continue on telemetry monitoring for another 24 hours. 2. Anterograde amnesia. At this time she appears to be awake and alert, answering questions appropriately. EEG ordered. Neurology will be consulted. 3. Anxiety. As needed benzodiazepine with caution. On fluoxetine. Avoid oversedation. 4. Atrial flutter. On atenolol with holding parameters, also on digoxin. Not on anticoagulation. 5. Recent cataract surgery. On eye drops. Outpatient followup with her project finance analyst. 6. Coronary artery disease (CAD). On aspirin and beta blockade. Unable to tolerate statins due to myalgias. MTDD
[2017-05-12] MEDS: LATANOPROST 0.005% OPHTH SOLN 2.5 ML OU SCH (21:46)
[2017-05-12] MEDS: traMADol 50 MG TAB PO PRN (21:46)
[2017-05-13] MEDS: NITROGLYCERIN 2% OINT 1 GM *U/D* PKT TOP SCH ×6 (03:55→19:12)
--- NOTE | 2017-05-13 04:59 | EEG ---
DATE OF PROCEDURE: 05/11/2017 REFERRING PHYSICIAN: Dr. Carisa Tiwari DIAGNOSIS: Falls, amnesia, rule out seizures. EEG NUMBER: [id number]. HISTORY: Patient is a 72-year-old woman who was admitted at [facility] due to frequent falls. She is currently taking aspirin, digoxin, Prozac, Prilosec, atenolol, amlodipine, tramadol, etc. TECHNICAL DESCRIPTION: This digital EEG was recorded by 21 scalp, ear and two EKG electrodes and was reviewed in bipolar and referential montages following reformatting in 10-20 international electrode placement system. INTERPRETATION: Patient was noted to be in awake and drowsy states during this EEG. Resting awake background rhythm consisted of well-formed posterior dominant rhythm with anterior/posterior gradient comprising of 9 Hz alpha activity measuring 15-40 microvolts in amplitude, which was symmetric and reactive to eye opening. Attenuation of posterior dominant was seen during transition into drowsiness. Low voltage and mixed frequency activity was noted in frontal head regions. Stage I and II sleep were reviewed and was symmetric bilaterally. Hyperventilation could not be performed. Photic stimulation remained unremarkable. EKG revealed normal sinus rhythm. No focal, lateralizing or epileptiform abnormalities were seen. No clinical or electrographic seizures were recorded. CONCLUSION: This EEG in awake, drowsy states, stage I and II sleep is within normal limits.
[2017-05-13 05:09] LABS: MEAN CORPUSCULAR HEMOGLOBIN 28.4 pg (27.0-33.0); MEAN CORPUSCULAR HGB CONC 32.3 g/dl (32.0-36.5); MEAN CORPUSCULAR VOLUME 87.8 fl (80.0-96.0); RED CELL DISTRIBUTION WIDTH 15.4 % (11.5-14.5); WHITE BLOOD COUNT 7.2 K/mm3 (4.0-10.0)
[2017-05-13 05:25] LABS: ANION GAP 9 MEQ/L (8-16); BLOOD UREA NITROGEN 12 MG/DL (7-18); CALCIUM LEVEL 8.9 MG/DL (8.8-10.2); CARBON DIOXIDE LEVEL 30 MEQ/L (21-32); CHLORIDE LEVEL 106 MEQ/L (98-107); CREATININE FOR GFR 0.54 MG/DL (0.55-1.02); GLOMERULAR FILTRATION RATE > 60.0 (>39); GLUCOSE, FASTING 125 MG/DL (83-110); POTASSIUM SERUM 3.9 MEQ/L (3.5-5.1); SODIUM LEVEL 145 MEQ/L (136-145)
--- NOTE | 2017-05-13 07:22 | ECHO ---
DATE OF PROCEDURE: 05/12/2017 REFERRING PHYSICIAN: Dr. Bobbi Lancaster. INDICATION: Syncope. HEIGHT: 63 inches. WEIGHT: 180 pounds. 2D MEASUREMENTS: Aortic root: 2.9 cm Proximal ascending aorta: 3.0 cm Left atrium: 3.9 cm Ventricular septum: 1.10 cm Posterior wall: 0.78 cm Left ventricle diastole: 3.9 cm Left ventricle systole: 2.8 cm Inferior vena cava: 1.9 cm DOPPLER MEASUREMENTS: Aortic valve velocity: 157 cm/s LVOT velocity: 94.0 cm/s LVOT VTI: 27.2 cm Mild mitral regurgitation. Mitral E velocity: 131 cm/s Mitral A velocity: 182 cm/s Mitral deacceleration time: 437 ms Trace tricuspid regurgitation. Pulmonary artery systolic pressure 33 mmHg by pulmonary acceleration time method. MITRAL ANNULAR TISSUE DOPPLER: E-prime septal: 6.2 cm/s E-prime septal: 3.6 cm/s DESCRIPTION: Rhythm was sinus bradycardia. Image quality was fair. No pericardial effusion. This was a 2D, M-mode, color flow Doppler and pulsed wave Doppler examination and included mitral annular tissue Doppler. CONCLUSIONS: 1. Normal left ventricle size and wall thickness. Multiple regional wall motion abnormalities. 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 Akinesis of the inferior wall from base to apex. Basal inferolateral segment was severely hypokinetic and mid inferolateral segment was akinetic. Basal anterolateral segment was akinetic and mid anterolateral segment was severely hypokinetic. Normal LV wall motion and wall thickening elsewhere. Severe reduction overall LV systolic function. LVEF 30% by visual estimate. Grade 1 LV diastolic dysfunction (impaired relaxation filling pattern). 2. Mild left atrial dilatation. 3. Moderate mitral annular calcification. Mild mitral regurgitation. 4. Mild aortic valve sclerosis of a 3-cusp aortic valve. 5. Suggestive of very mild elevation of pulmonary artery systolic pressure. Normal right ventricle size and systolic function. cc: Elmer Monteiro MD, FACC Bobbi Lancaster MD
[2017-05-13] MEDS: HumaLOG INSULIN (NovoLOG) PER UNIT SC SCH ×4 (07:30→21:00)
[2017-05-13 08:00] VITALS: BP 168/74
[2017-05-13] MEDS: ASPIRIN 81 MG CHEW TABLET PO SCH (08:52)
[2017-05-13] MEDS: FLUoxetine 20 MG CAP PO SCH (08:52)
[2017-05-13] MEDS: OMEPRAZOLE 20 MG CAP PO SCH (08:52)
[2017-05-13] MEDS: ATENOLOL 50 MG TAB PO SCH ×2 (08:55→09:00)
[2017-05-13] MEDS: DIGOXIN 0.125 MG TAB PO SCH ×2 (08:55→09:00)
[2017-05-13] MEDS: ENOXAPARIN 40 MG/0.4 ML SYRINGE (J1650) SC SCH (08:56)
[2017-05-13] MEDS: prednisoLONE ACET 1% OPHTH SUSP 5ML OU SCH ×4 (08:57→21:15)
[2017-05-13] MEDS: BRIMONIDINE 0.1% OPHTH SOLN 5 ML OU SCH ×2 (08:57→21:15)
[2017-05-13] MEDS: NYSTATIN 100,000 UNITS/GM TOPICAL PWD 15 GM TOP SCH ×2 (08:58→21:16)
[2017-05-13] MEDS: CANDESARTAN 4MG TABLET PO SCH ×2 (10:55→21:00)
[2017-05-13] MEDS: diazePAM 5 MG TAB PO PRN ×2 (10:58→21:20)
[2017-05-13 12:00] VITALS: BP 170/80
--- NOTE | 2017-05-13 13:56 | IPN ---
DATE: 05/13/2017 Patient remains hypertensive despite atenolol. Heart rate is in the 50s. The patient currently denies any chest pain, pressure, tightness, lightheadedness or dizziness, but continues to feel unstable on her feet with balance issues. No falls. PHYSICAL EXAMINATION: Vital signs: Temperature 97.1, pulse 50, respiratory rate 18, blood pressure 170/60, 95% on room air. GENERAL: The patient is awake, alert, oriented times three. Status post surgery of right eye. LUNGS: Clear to auscultation. No wheezing, rales or rhonchi. HEART: S1, S2. Sinus rhythm. ABDOMEN: Soft, nontender, nondistended. Positive bowel sounds. EXTREMITIES: No cyanosis, clubbing or pitting edema. Right eye with a patch. LABORATORY DATA: Reviewed. IMAGING STUDIES: MRI of the brain with left temporal lobe encephalomalcia, small vessel ischemic disease, mild volume loss. No aneurysm. Atherosclerotic disease as described. Electroencephalogram (EEG) negative. IMPRESSION: This is a 72-year-old female with history of coronary artery disease (CAD), coronary artery bypass graft (CABG), anxiety, atrial flutter, insomnia, reflux, type 2 diabetes, hypertension, chronic low back pain, presented to the emergency room with recurrent falls at home. The patient had cataract surgery a week ago. Was brought into the emergency room with worsening anterograde amnesia and repeatedly asking where she was. The patient lives with her 47-year-old son and no other relatives. Recurrent falls and unsteady gait. Issues with proprioception. MRI and MRA show no acute changes. Admitted for the following issues: 1. Frequent falls with anterograde amnesia. Patient had a fall on 05/08/2017, was seen in [place] emergency room (ER) and discharged home at that time. The patient has had recent cataract surgery and had been on opioids and currently on as needed benzodiazepine. EEG is negative. MRI/MRA of the brain showed no acute intracranial pathology. Echocardiogram is pending. Obtain MRA of the carotids. No issues on telemetry. 2. Anterograde amnesia. Appears to be awake and alert, oriented. EEG negative. Neurology, Dr. Durant, has been consulted. 3. Anxiety. As needed benzodiazepine with caution. On fluoxetine. Avoid oversedation. 4. Atrial fibrillation/atrial flutter. On atenolol with holding parameters, also on digoxin. Not on anticoagulation due to recurrent falls and increased risk of intracranial hemorrhage. 5. Recent cataract surgery. On eye drops. Outpatient followup with her epic beacon analyst. 6. Coronary artery disease (CAD). On aspirin and beta blockade. Unable to tolerate statins due to myalgias. Await physical therapy (PT) clearance prior to discharge and if negative workup. MTDD
[2017-05-13 16:00] VITALS: BP 144/68
--- NOTE | 2017-05-13 20:00 | CR ---
DATE OF CONSULTATION: 05/13/2017 REFERRING PHYSICIAN: Dr. Carisa Tiwari. REASON FOR CONSULTATION: Falls. HISTORY OF PRESENT ILLNESS: The patient is a 72-year-old woman who had cataract surgery a week ago. The patient states that her balance problems started a year and a half ago. She developed difficulty walking. She started falling down around Camila of 2016. Her gait problems have worsened. She has been falling 2-3 times a day over last couple of weeks. She feels dizziness. Dizziness happens mostly when she is actually falling. She cannot get up. She feels her gait problem got even worse since she had cataract surgery. She called her conference coordinator who recommended her to go to [facility] Emergency Department. From there, she was sent to [facility] Emergency Department. She states that she stayed there in the emergency department for a couple of days. They told her that they could not find anything wrong with her. The patient states that she has been using two canes for ambulation, but they aggravate her problems. She does not have a walker. She started using a walker in the hospital which she likes and it helps her. She has frequent headaches for the last couple of years. Headaches are stabbing in character behind her right eye. She feels she has difficulty focusing her eyes. For last couple of months, she feels difficulty with short-term memory. She has hearing deficit in the right ear. She had right cataract surgery a week ago and left-sided surgery will be planned in near future. She has history of chronic low back pain for which she has been going to pain clinic. She gets facet joint blocks at pain clinic. She has mild neck stiffness. She denies dysphagia, dysarthria, diplopia or loss of consciousness. She states that she had multiple concussions over the years. She denies any seizures. DIAGNOSTIC STUDIES: Her MRI scan of brain was reviewed and showed small vessel ischemic disease of brain and left anterior temporal encephalomalacia. MRA of brain showed mild internal carotid artery atherosclerosis. Her MRI lumbosacral spine from 2015, was reviewed and showed multilevel lumbosacral disc disease, grade 1 spondylolisthesis and mild lumbosacral spinal stenosis. PAST MEDICAL HISTORY: 1. Diabetes. 2. Hypertension. 3. Chronic back pain. 4. Anxiety. 5. Insomnia. 6. Atrial flutter. 7. Coronary artery disease status post coronary artery bypass graft. ALLERGIES: 1. TYLENOL. 2. HYDROCHLOROTHIAZIDE. 3. ACTOS. 4.TETANUS. 5. IMMUNOGLOBULINS. 6. LISINOPRIL. 7. DILTIAZEM. 8. BENZOCAINE. 9. LIPITOR. 10. SIMVASTATIN. PAST SURGICAL HISTORY: 1. Left knee replacement. 2. Right carpal tunnel surgery. 3. Hysterectomy. 4. Coronary artery bypass graft (CABG) times five in 2010. 5. Colonoscopy. SOCIAL HISTORY: The patient is a former smoker. She retired. Her son lives with her. CURRENT MEDICATIONS: - insulin NovoLog sliding scale before meals - oxycodone 5 mg by mouth three times a day as needed - Besivance 0.6% eye drops in both eyes twice a day - aspirin 81 mg by mouth daily - atenolol 50 mg by mouth daily - Alphagan eye drops both eyes - diazepam 10 mg by mouth three times a day as needed - digoxin 0.125 mg by mouth daily - fluoxetine 40 mg by mouth daily - Prilosec 40 mg by mouth daily - prednisolone eye drops one drop in each eye twice a day FAMILY HISTORY: Noncontributory. PHYSICAL EXAMINATION: VITAL SIGNS: Temperature 98.0, pulse 54, respiratory 18, blood pressure 168/74, 96% saturation on room air. HEART: Regular rate and rhythm. LUNGS: Clear to auscultation. ABDOMEN: Soft, nontender, nondistended. NEUROLOGIC EXAMINATION: The patient is awake, alert, oriented to place, person and time. Normal speech, comprehension and repetition. Extraocular muscles are intact. No facial weakness. Tongue and uvula midline. 5/5 strength in all four extremities. Deep tendon flexes 1+ in arms and absent in legs. She has decreased cold pinprick vibration sensation in her feet. Her gait is unsteady. Romberg testing is positive. She cannot do tandem walking. She is able to walk better with a walker. ASSESSMENT 1. Multifactorial gait difficulty. 2. Diabetic peripheral neuropathy. 3. Multilevel lumbosacral disc disease. 4. Small vessel ischemic disease of brain and left anterior temporal traumatic encephalomalacia. 5. There is concern for cervical stenosis. 6. Benign positional vertigo is in differential diagnosis. PLAN: 1. MRI cervical spine. 2. Vestibular rehabilitation exercises. 3. She must use a rolling walker all the time. 4. Check orthostatic blood pressure to make sure the patient does not have orthostatic hypotension due to diabetic small fiber autonomic neuropathy. 5. Trial of Depakote extended-release 250 mg by mouth at bedtime. 6. Physical and occupational therapy. 7. Continue aspirin 81 mg by mouth daily. 8. Follow with our office in one month after hospital discharge.
[2017-05-13 20:23] VITALS: BP 148/67
[2017-05-13] MEDS: LATANOPROST 0.005% OPHTH SOLN 2.5 ML OU SCH (21:15)
[2017-05-13] MEDS: DIVALPROEX 250MG *ER* TAB PO SCH (21:15)
[2017-05-13 23:42] VITALS: BP_SYST 131; BP_SYST 138; BP_SYST 145; BP_DIAS 60; BP_DIAS 63; BP_DIAS 67
[2017-05-14] MEDS: NITROGLYCERIN 2% OINT 1 GM *U/D* PKT TOP SCH ×2 (00:14→03:47)
[2017-05-14 03:37] VITALS: BP 172/80
[2017-05-14 05:37] LABS: MEAN CORPUSCULAR HEMOGLOBIN 27.8 pg (27.0-33.0); MEAN CORPUSCULAR HGB CONC 31.6 g/dl (32.0-36.5); MEAN CORPUSCULAR VOLUME 88.1 fl (80.0-96.0); RED CELL DISTRIBUTION WIDTH 15.4 % (11.5-14.5); WHITE BLOOD COUNT 7.5 K/mm3 (4.0-10.0)
[2017-05-14 05:44] LABS: ANION GAP 8 MEQ/L (8-16); BLOOD UREA NITROGEN 14 MG/DL (7-18); CALCIUM LEVEL 8.6 MG/DL (8.8-10.2); CARBON DIOXIDE LEVEL 28 MEQ/L (21-32); CHLORIDE LEVEL 107 MEQ/L (98-107); GLOMERULAR FILTRATION RATE > 60.0 (>39); GLUCOSE, FASTING 136 MG/DL (83-110); POTASSIUM SERUM 3.9 MEQ/L (3.5-5.1); SODIUM LEVEL 143 MEQ/L (136-145)
[2017-05-14 07:59] VITALS: BP 133/70
[2017-05-14] MEDS ORDERED: CANDESARTAN 4MG TABLET PO ONE (08:00)
[2017-05-14] MEDS ORDERED: MECLIZINE 25 MG TABLET PO PRN (08:15)
[2017-05-14] MEDS: ASPIRIN 81 MG CHEW TABLET PO SCH (08:33)
[2017-05-14] MEDS: FLUoxetine 20 MG CAP PO SCH (08:33)
[2017-05-14] MEDS: HumaLOG INSULIN (NovoLOG) PER UNIT SC SCH ×4 (08:33→21:00)
[2017-05-14] MEDS: ATENOLOL 50 MG TAB PO SCH (08:33)
[2017-05-14] MEDS: OMEPRAZOLE 20 MG CAP PO SCH (08:33)
[2017-05-14] MEDS: DIGOXIN 0.125 MG TAB PO SCH (08:33)
[2017-05-14] MEDS: NYSTATIN 100,000 UNITS/GM TOPICAL PWD 15 GM TOP SCH ×2 (08:34→21:57)
[2017-05-14] MEDS: ENOXAPARIN 40 MG/0.4 ML SYRINGE (J1650) SC SCH (08:34)
[2017-05-14] MEDS: BRIMONIDINE 0.1% OPHTH SOLN 5 ML OU SCH ×2 (08:34→22:07)
[2017-05-14] MEDS: prednisoLONE ACET 1% OPHTH SUSP 5ML OU SCH ×4 (08:34→22:07)
[2017-05-14] MEDS: diazePAM 5 MG TAB PO PRN (08:53)
[2017-05-14] MEDS ORDERED: CYANOCOBALAMIN 1,000 MCG/ML VIAL (J3420) IM SCH (09:00)
--- NOTE | 2017-05-14 10:05 | IPN ---
DATE: 05/14/2017 The patient was seen and examined at the bedside. The chart has been reviewed. The patient denies any chest pain, pressure or tightness, though with proprioceptive complaint, unsteady gait. No fever or chills, dysuria, urgency, or frequency. Vitals: Temperature 97.5, pulse 82, respiratory rate 20, blood pressure 172/80, 91% to 97% on room air. Generally, the patient is awake, alert and oriented times three, answering questions appropriately. No respiratory distress. No cyanosis, icterus or jaundice. Pupils round, reactive to light and accommodation. Extraocular muscles are intact. Normocephalic, atraumatic. Normal speech. Speaks in full sentences. Tongue is midline. Lungs are clear to auscultation. No wheezing, rales or rhonchi. Heart: S1, S2. Sinus rhythm. Abdomen: Soft. Nontender. Nondistended. Positive bowel sounds times four quadrants. No hepatosplenomegaly. No rebound or guarding. Extremities: No cyanosis or clubbing. No pitting edema. Neurologic Exam: 5/5 strength times four extremities. Tongue is midline. No facial weakness. Normal speech. Speaks in full sentences. Awake, alert and oriented times three. Unsteady gait. CBC and metabolic panel, microbiology and imaging studies have been reviewed. EEG is negative. ASSESSMENT AND PLAN: This is a 72-year-old female with history of coronary artery disease (CAD), coronary artery bypass graft (CABG), anxiety, atrial flutter, insomnia, type 2 diabetes, hypertension, chronic low back pain who had cataract surgery a week ago and was having recurrent falls at home with anterograde amnesia, repeatedly asking where she was, and MRA showed no acute changes, admitted for the following issues: 1. Multifactorial gait abnormality. Differential diagnosis includes diabetic peripheral neuropathy, lumbar disc disease, small vessel ischemic disease of the brain with temporal traumatic encephalomalacia, possible cervical stenosis or benign positional vertigo. We have consulted Dr. Durant from neurology. MRI of cervical spine ordered for today. Rehabilitation exercises per occupational therapy. Rolling walker at all times. Will check orthostasis every 4 hours. Hydrate as needed. Trial of Depakote Extended Release 250 at bedtime. Physical therapy (PT) and occupational therapy (OT) and continue with aspirin. Followup one week after hospital discharge with neurology. Meclizine as needed. 2. PT clearance prior to discharge home. 3. Recent cataract surgery. Continue with eye drops. Outpatient followup with her final inspector movement assembly. 4. Anxiety. As needed benzodiazepine with caution. On fluoxetine. Avoid oversedation. 5. Atrial fibrillation/atrial flutter. On atenolol with holding parameters, also on digoxin. Not on anticoagulation due to recurrent falls and increased risk of intracranial hemorrhage. 6. Coronary artery disease (CAD). On aspirin and beta blockade. Unable to tolerate statins due to myalgias. DISPOSITION: Await MRI of cervical spine and PT clearance prior to discharge home. MTDD
[2017-05-14 11:38] VITALS: BP_SYST 137; BP_SYST 152; BP_SYST 160; BP_DIAS 75; BP_DIAS 78
[2017-05-14 11:41] VITALS: BP 137/75
[2017-05-14] MEDS: traMADol 50 MG TAB PO PRN (12:48)
[2017-05-14] MEDS: cefTRIAXone SOD 1 GM in D5W MINI-BAG PLUS 50 ML IV SCH (14:28)
[2017-05-14 16:00] VITALS: BP 130/71
--- NOTE | 2017-05-14 19:26 | REP ---
MRI cervical spine: Without contrast: History: Unsteady gait bilateral leg weakness. No comparison cervical spine imaging. Technique: Sagittal and axial T1 and T2-weighted scans are acquired in the usual fashion with and without fat saturation. Sequences include spin echo, turbo spin-echo, and STIR imaging sequences. MRI findings: There is some straightening of the normal cervical lordosis. Cervical vertebral body heights are preserved. Alignment is normal. Cortical and medullary bone signal intensity are normal. The cervical cord is normal in coarse caliber and signal intensity on T1 and T2-weighted scans. Craniocervical junction is unremarkable. There is a degenerative narrowing and decreased signal intensity at the C4-5, C5-6 and C6-7 discs consistent with degenerative disc disease at these levels. Axial and sagittal images at C4-5 show bilateral uncovertebral spurring, and diffuse disc bulging. This indents the ventral margin of the thecal sac but no cord compression is seen. At C5-C6, there is diffuse disc bulging effacing the ventral margin of the thecal sac with some discogenic spurring. This effaces the ventral margin of the thecal sac and indents the ventral margin of the cord. No central canal stenosis is seen. Bilateral uncovertebral spurring produces neural foraminal encroachment. At C6-C7, there is diffuse disc bulging effacing the ventral subarachnoid space but not contacting the cord. Bilateral uncovertebral spurring is seen mild in degree. The C7-T1 level is unremarkable. At C2-3 and C3-4, there is mild central disc bulging at each of these levels without cord compression. Impression: Degenerative spondylosis changes at C4-5, C5-6, and C6-7 with bilateral uncovertebral spurring at each level and central disc bulging. There is some flattening of the ventral cord margin at C5-6. Signed by Kodak Gerardo MD 05/14/2017 08:03 P
--- NOTE | 2017-05-14 19:56 | REP ---
MRI thoracic spine without contrast: History: Myelopathy, leg weakness. No comparison thoracic spine imaging. Technique: Sagittal and axial T1 and T2-weighted scans are acquired in the usual fashion with and without fat saturation. Sequences include spin echo, turbo spin-echo, and STIR imaging sequences. MRI findings: Thoracic vertebral body heights are preserved. Alignment is normal. Disc spaces are maintained. Thoracic cord is normal in coarse, caliber and signal intensity. No cord compressive lesion is seen. There is a small central disc bulge at T7-T8, effacing the ventral subarachnoid space. No neural foraminal narrowing is seen. No central canal stenosis noted. Impression: No cord compressive lesion seen. Minimal degenerative disc changes T8-9 and T7-8. Signed by Kodak Gerardo MD 05/14/2017 08:05 P
[2017-05-14] MEDS: CANDESARTAN 4MG TABLET PO SCH (21:57)
[2017-05-14] MEDS: DIVALPROEX 250MG *ER* TAB PO SCH (21:57)
[2017-05-14 22:00] VITALS: BP_SYST 135; BP_SYST 162; BP_SYST 165; BP_SYST 176; BP_DIAS 61; BP_DIAS 71; BP_DIAS 74
[2017-05-14] MEDS: LATANOPROST 0.005% OPHTH SOLN 2.5 ML OU SCH (22:07)
[2017-05-15 06:00] VITALS: BP 156/69
[2017-05-15 06:50] LABS: MEAN CORPUSCULAR HEMOGLOBIN 28.4 pg (27.0-33.0); MEAN CORPUSCULAR HGB CONC 32.5 g/dl (32.0-36.5); MEAN CORPUSCULAR VOLUME 87.1 fl (80.0-96.0); RED CELL DISTRIBUTION WIDTH 15.2 % (11.5-14.5); WHITE BLOOD COUNT 7.3 K/mm3 (4.0-10.0)
[2017-05-15 07:06] LABS: ANION GAP 9 MEQ/L (8-16); BLOOD UREA NITROGEN 14 MG/DL (7-18); CALCIUM LEVEL 9.1 MG/DL (8.8-10.2); CARBON DIOXIDE LEVEL 27 MEQ/L (21-32); CHLORIDE LEVEL 106 MEQ/L (98-107); CREATININE FOR GFR 0.57 MG/DL (0.55-1.02); GLOMERULAR FILTRATION RATE > 60.0 (>39); GLUCOSE, FASTING 135 MG/DL (83-110); POTASSIUM SERUM 3.9 MEQ/L (3.5-5.1); SODIUM LEVEL 142 MEQ/L (136-145)
[2017-05-15] MEDS: HumaLOG INSULIN (NovoLOG) PER UNIT SC SCH ×4 (08:14→21:00)
[2017-05-15] MEDS: ENOXAPARIN 40 MG/0.4 ML SYRINGE (J1650) SC SCH (08:14)
[2017-05-15] MEDS: DIGOXIN 0.125 MG TAB PO SCH (08:15)
[2017-05-15] MEDS: ATENOLOL 50 MG TAB PO SCH (08:16)
[2017-05-15] MEDS: OMEPRAZOLE 20 MG CAP PO SCH (08:16)
[2017-05-15] MEDS: FLUoxetine 20 MG CAP PO SCH (08:16)
[2017-05-15] MEDS: ASPIRIN 81 MG CHEW TABLET PO SCH (08:16)
[2017-05-15] MEDS: NYSTATIN 100,000 UNITS/GM TOPICAL PWD 15 GM TOP SCH ×2 (08:17→21:49)
[2017-05-15] MEDS: BRIMONIDINE 0.1% OPHTH SOLN 5 ML OU SCH ×2 (08:17→21:50)
[2017-05-15] MEDS: prednisoLONE ACET 1% OPHTH SUSP 5ML OU SCH ×4 (08:17→21:49)
[2017-05-15 11:39] VITALS: BP 156/69
--- NOTE | 2017-05-15 12:38 | IPN ---
DATE: 05/15/2017 72-year-old female seen at bedside. No overnight issues reported. Physical therapy is to see her this morning. She has had still some issues with some instability felt to be related to neuropathy. OBJECTIVE: Temperature 97.1, pulse 64, respiratory rate is 19, blood pressure (BP) 156/69, SPO2 is 95% on room air. General: The patient appears to be in no acute distress. She is alert, pleasant. HEENT: Unremarkable. Lungs: Clear to auscultation. Heart: Regular rate and rhythm. Abdomen: Soft. Extremities: No edema. No calf tenderness. White count 7.3, hemoglobin 13 and platelets 251,000. Sodium is 142, potassium 3.9, chloride 106, bicarb 27, anion gap 9, BUN 14, creatinine 0.57, glucose 135. ASSESSMENT/PLAN: 1. Gait instability, multifactorial. Likely related to diabetic peripheral neuropathy as well as small vessel ischemic disease of the brain. Appreciate neurology's input. Trial of Depakote has been placed. She continues with physical therapy (PT) and occupational therapy (OT). Meclizine p.r.n. as well; however, she does not appear to be vertiginous 2. Recent cataract surgery. Continue with eye drops. 3. Anxiety, stable. 4. Atrial fibrillation with atrial flutter. She is rate controlled on atenolol and digoxin. No anticoagulation at this time due to risk of fall and intracranial hemorrhage. 5. Coronary artery disease, on aspirin and beta blockade. Unable to tolerate statins due to myalgia. 6. Deep vein thrombosis (DVT) prophylaxis with subcutaneous Lovenox. 7. Urinary tract infection. Continue on Rocephin for another 24-48 hours. DISPOSITION: Depending on physical therapy, she will likely be ready for home discharge in the next 24-48 hours.
[2017-05-15] MEDS: cefTRIAXone SOD 1 GM in D5W MINI-BAG PLUS 50 ML IV SCH (13:08)
[2017-05-15 15:00] VITALS: BP 168/92
[2017-05-15 21:18] VITALS: BP 140/67
[2017-05-15] MEDS: DIVALPROEX 250MG *ER* TAB PO SCH (21:49)
[2017-05-15] MEDS: CANDESARTAN 4MG TABLET PO SCH (21:49)
[2017-05-15] MEDS: LATANOPROST 0.005% OPHTH SOLN 2.5 ML OU SCH (21:49)
[2017-05-16 06:00] VITALS: BP 164/74
[2017-05-16 06:25] LABS: MEAN CORPUSCULAR HEMOGLOBIN 28.4 pg (27.0-33.0); MEAN CORPUSCULAR HGB CONC 32.8 g/dl (32.0-36.5); MEAN CORPUSCULAR VOLUME 86.5 fl (80.0-96.0); RED CELL DISTRIBUTION WIDTH 15.3 % (11.5-14.5); WHITE BLOOD COUNT 8.2 K/mm3 (4.0-10.0)
[2017-05-16 06:27] LABS: ANION GAP 9 MEQ/L (8-16); BLOOD UREA NITROGEN 17 MG/DL (7-18); CALCIUM LEVEL 9.1 MG/DL (8.8-10.2); CARBON DIOXIDE LEVEL 26 MEQ/L (21-32); CHLORIDE LEVEL 105 MEQ/L (98-107); CREATININE FOR GFR 0.56 MG/DL (0.55-1.02); GLOMERULAR FILTRATION RATE > 60.0 (>39); GLUCOSE, FASTING 132 MG/DL (83-110); POTASSIUM SERUM 3.8 MEQ/L (3.5-5.1); SODIUM LEVEL 140 MEQ/L (136-145)
[2017-05-16] MEDS: HumaLOG INSULIN (NovoLOG) PER UNIT SC SCH ×4 (09:03→20:10)
[2017-05-16] MEDS: OMEPRAZOLE 20 MG CAP PO SCH (09:12)
[2017-05-16] MEDS: FLUoxetine 20 MG CAP PO SCH (09:12)
[2017-05-16] MEDS: ENOXAPARIN 40 MG/0.4 ML SYRINGE (J1650) SC SCH (09:12)
[2017-05-16] MEDS: ATENOLOL 50 MG TAB PO SCH (09:13)
[2017-05-16] MEDS: ASPIRIN 81 MG CHEW TABLET PO SCH (09:13)
[2017-05-16] MEDS: DIGOXIN 0.125 MG TAB PO SCH (09:13)
[2017-05-16] MEDS: prednisoLONE ACET 1% OPHTH SUSP 5ML OU SCH ×4 (09:13→20:15)
[2017-05-16] MEDS: BRIMONIDINE 0.1% OPHTH SOLN 5 ML OU SCH ×2 (09:13→20:15)
[2017-05-16] MEDS: NYSTATIN 100,000 UNITS/GM TOPICAL PWD 15 GM TOP SCH ×2 (09:14→20:15)
--- NOTE | 2017-05-16 10:10 | IPN ---
DATE: 05/16/2017 72-year-old female seen at bedside. No overnight issues reported; however, she did have a urine culture that came back positive for E-coli yesterday evening and started on IV Rocephin. OBJECTIVE: Temperature 97.3, pulse 69 and regular, respiratory rate 16 and nonlabored, blood pressure (BP) 140/67, and SPO2 is 96% on room air. General: The patient appears to be in no acute distress. She is alert, pleasant. HEENT: Unremarkable. Lungs: Clear. Heart: Regular rate and rhythm. Abdomen is soft, obese, nontender, nondistended, with positive bowel sounds. No masses or rebound. Extremities: No edema. No calf tenderness. LABORATORIES: White count 8.2, hemoglobin 12.8 and platelets are 255,000. Sodium 140, potassium 3.8, chloride 105, bicarb 26, anion gap 9, BUN 17, creatinine 0.56, glucose 132. Urinalysis 3+ leukocyte esterase, positive nitrites. Urine culture positive for E-coli sensitive to ceftriaxone. ASSESSMENT/PLAN: 1. Urinary tract infection with positive E-coli on urine culture, started on IV Rocephin. 2. Gait instability, which is multifactorial. She does not appear to be vertiginous, but will go ahead and continue with p.r.n. meclizine as indicated previously and a trial Depakote as suggested by neurology. Continue with occupational therapy (OT) and physical therapy (PT). Appreciate their input. 3. Obesity, which complicates her medical care. 4. Recent cataract surgery, continue eye drops. 5. Anxiety, stable. 6. Atrial fibrillation/atrial flutter. She is rate controlled on atenolol and digoxin. No anticoagulation at this time due to risk of fall and intracranial hemorrhage. 7. Coronary artery disease, on aspirin and beta geovanni. Unable tolerate statins due to myalgia. 8. Deep vein thrombosis (DVT) prophylaxis, on Lovenox. DISPOSITION: Will continue with physical therapy. Appreciate their input as well.
[2017-05-16 11:50] VITALS: BP 126/60
[2017-05-16] MEDS: cefTRIAXone SOD 1 GM in D5W MINI-BAG PLUS 50 ML IV SCH (13:07)
[2017-05-16 14:30] VITALS: BP 147/67
[2017-05-16] MEDS: diazePAM 5 MG TAB PO PRN (16:07)
[2017-05-16] MEDS: CANDESARTAN 4MG TABLET PO SCH (20:10)
[2017-05-16] MEDS: LATANOPROST 0.005% OPHTH SOLN 2.5 ML OU SCH (20:15)
[2017-05-16] MEDS: DIVALPROEX 250MG *ER* TAB PO SCH (20:15)
[2017-05-16] MEDS: traMADol 50 MG TAB PO PRN (20:16)
[2017-05-16 21:00] VITALS: BP 136/63
[2017-05-17] MEDS: diazePAM 5 MG TAB PO PRN (03:10)
[2017-05-17 05:58] LABS: MEAN CORPUSCULAR HEMOGLOBIN 28.3 pg (27.0-33.0); MEAN CORPUSCULAR HGB CONC 32.5 g/dl (32.0-36.5); MEAN CORPUSCULAR VOLUME 86.9 fl (80.0-96.0); RED CELL DISTRIBUTION WIDTH 15.1 % (11.5-14.5); WHITE BLOOD COUNT 8.3 K/mm3 (4.0-10.0)
[2017-05-17 06:00] VITALS: BP 139/84
[2017-05-17 06:19] LABS: ANION GAP 7 MEQ/L (8-16); BLOOD UREA NITROGEN 18 MG/DL (7-18); CALCIUM LEVEL 9.7 MG/DL (8.8-10.2); CARBON DIOXIDE LEVEL 29 MEQ/L (21-32); CHLORIDE LEVEL 105 MEQ/L (98-107); GLOMERULAR FILTRATION RATE > 60.0 (>39); GLUCOSE, FASTING 136 MG/DL (83-110); SODIUM LEVEL 141 MEQ/L (136-145)
[2017-05-17] MEDS: traMADol 50 MG TAB PO PRN (09:03)
[2017-05-17] MEDS: HumaLOG INSULIN (NovoLOG) PER UNIT SC SCH ×4 (09:03→20:49)
[2017-05-17] MEDS: FLUoxetine 20 MG CAP PO SCH (09:04)
[2017-05-17] MEDS: ENOXAPARIN 40 MG/0.4 ML SYRINGE (J1650) SC SCH (09:04)
[2017-05-17] MEDS: OMEPRAZOLE 20 MG CAP PO SCH (09:04)
[2017-05-17] MEDS: ASPIRIN 81 MG CHEW TABLET PO SCH (09:05)
[2017-05-17] MEDS: BRIMONIDINE 0.1% OPHTH SOLN 5 ML OU SCH ×2 (09:05→21:18)
[2017-05-17] MEDS: prednisoLONE ACET 1% OPHTH SUSP 5ML OU SCH ×3 (09:05→21:18)
[2017-05-17] MEDS: NYSTATIN 100,000 UNITS/GM TOPICAL PWD 15 GM TOP SCH ×2 (09:06→21:19)
[2017-05-17] MEDS: DIGOXIN 0.125 MG TAB PO SCH (09:09)
[2017-05-17] MEDS: ATENOLOL 50 MG TAB PO SCH (09:10)
[2017-05-17] MEDS: cefTRIAXone SOD 1 GM in D5W MINI-BAG PLUS 50 ML IV SCH (13:15)
[2017-05-17 14:00] VITALS: BP 152/65
[2017-05-17] MEDS: KETOROLAC 0.5% OPHTH SOLN OU SCH ×2 (17:00→21:18)
[2017-05-17] MEDS: CANDESARTAN 4MG TABLET PO SCH (21:18)
[2017-05-17] MEDS: DIVALPROEX 250MG *ER* TAB PO SCH (21:18)
[2017-05-17] MEDS: LATANOPROST 0.005% OPHTH SOLN 2.5 ML OU SCH (21:18)
[2017-05-17 22:00] VITALS: BP 159/70
[2017-05-18] MEDS: diazePAM 5 MG TAB PO PRN (03:14)
[2017-05-18 06:00] VITALS: BP 156/74
[2017-05-18] MEDS: HumaLOG INSULIN (NovoLOG) PER UNIT SC SCH ×4 (07:30→21:00)
[2017-05-18] MEDS: BRIMONIDINE 0.1% OPHTH SOLN 5 ML OU SCH ×2 (08:14→21:26)
[2017-05-18] MEDS: KETOROLAC 0.5% OPHTH SOLN OU SCH (08:14)
[2017-05-18] MEDS: NYSTATIN 100,000 UNITS/GM TOPICAL PWD 15 GM TOP SCH ×2 (08:14→21:26)
[2017-05-18] MEDS: ENOXAPARIN 40 MG/0.4 ML SYRINGE (J1650) SC SCH (08:14)
[2017-05-18] MEDS: prednisoLONE ACET 1% OPHTH SUSP 5ML OU SCH (08:14)
[2017-05-18] MEDS: FLUoxetine 20 MG CAP PO SCH (08:14)
[2017-05-18] MEDS: CEFDINIR 300 MG CAP (OMNICEF) PO SCH ×2 (08:14→21:25)
[2017-05-18] MEDS: ATENOLOL 50 MG TAB PO SCH (08:15)
[2017-05-18] MEDS: ASPIRIN 81 MG CHEW TABLET PO SCH (08:15)
[2017-05-18] MEDS: DIGOXIN 0.125 MG TAB PO SCH (08:15)
[2017-05-18] MEDS: OMEPRAZOLE 20 MG CAP PO SCH (08:16)
[2017-05-18 08:29] LABS: MEAN CORPUSCULAR HEMOGLOBIN 28.1 pg (27.0-33.0); MEAN CORPUSCULAR HGB CONC 32.3 g/dl (32.0-36.5); MEAN CORPUSCULAR VOLUME 87.2 fl (80.0-96.0); RED CELL DISTRIBUTION WIDTH 15.3 % (11.5-14.5); WHITE BLOOD COUNT 8.9 K/mm3 (4.0-10.0)
[2017-05-18 08:59] LABS: ANION GAP 9 MEQ/L (8-16); BLOOD UREA NITROGEN 17 MG/DL (7-18); CALCIUM LEVEL 9.1 MG/DL (8.8-10.2); CARBON DIOXIDE LEVEL 28 MEQ/L (21-32); CHLORIDE LEVEL 104 MEQ/L (98-107); CREATININE FOR GFR 0.54 MG/DL (0.55-1.02); GLOMERULAR FILTRATION RATE > 60.0 (>39); GLUCOSE, FASTING 124 MG/DL (83-110); SODIUM LEVEL 141 MEQ/L (136-145)
[2017-05-18] MEDS: traMADol 50 MG TAB PO PRN (11:01)
[2017-05-18] MEDS: KETOROLAC 0.5% OPHTH SOLN OD SCH ×3 (12:59→21:25)
[2017-05-18 14:00] VITALS: BP 142/66
--- NOTE | 2017-05-18 15:20 | IPN ---
DATE: 05/18/2017 SUBJECTIVE: A 72-year-old female seen at bedside resting comfortably. She denies headache, lightheadedness, dizziness, chest pain, shortness breath. No nausea, vomiting. OBJECTIVE: VITAL SIGNS: Temperature 97.6, pulse 67, respiratory rate is 14, blood pressure is 156/74, SPO2 is 92% on room air. GENERAL: The patient appears to be in no acute distress. She is pleasant. HEENT: Unremarkable. LUNGS: Clear. HEART: Regular rate and rhythm. ABDOMEN: Soft. EXTREMITIES: No edema, no calf tenderness. LABORATORY DATA: White count is 8.9, hemoglobin 12.9, platelets 252,000. Sodium is 141, potassium 4.0, chloride 104, bicarb 28, anion gap nine, BUN 17, creatinine 0.54, glucose 124. ASSESSMENT AND PLAN: 1. Urinary tract infection with Escherichia (E.) coli. We will progress her to oral antibiotics. 2. Gait instability which is multifactorial as outlined previously. She was started on Depakote by neurology, felt to have some underlying diabetic neuropathy. Continue with physical therapy (PT), occupational therapy (OT). Appreciate their input, but likely will need subacute rehabilitation. 3. Obesity which complicates her medical care. 4. Recent cataract surgery. Continue with eye drops. 5. Anxiety, stable. 6. Atrial fibrillation (A-fib), atrial flutter (A-flutter). Currently rate controlled. Not on any anticoagulation therapy due to risk of fall. 7. Coronary artery disease. Continue with aspirin and beta geovanni. Unable tolerate statins due to myalgia. 8. Deep venous thrombosis (DVT) prophylaxis with Lovenox. DISPOSITION: We will go ahead and make her intermediate with anticipation of placement for subacute rehabilitation sometime at the beginning of next week.
[2017-05-18] MEDS: amLODIPine 5 MG TAB PO SCH (16:07)
[2017-05-18] MEDS: CANDESARTAN 4MG TABLET PO SCH (21:00)
[2017-05-18] MEDS: LATANOPROST 0.005% OPHTH SOLN 2.5 ML OU SCH (21:26)
[2017-05-18] MEDS: prednisoLONE ACET 1% OPHTH SUSP 5ML OD SCH (21:26)
[2017-05-18] MEDS: DIVALPROEX 250MG *ER* TAB PO SCH (21:28)
[2017-05-19 05:50] VITALS: BP 130/60
[2017-05-19 06:16] LABS: MEAN CORPUSCULAR HEMOGLOBIN 27.9 pg (27.0-33.0); MEAN CORPUSCULAR HGB CONC 32.2 g/dl (32.0-36.5); MEAN CORPUSCULAR VOLUME 86.6 fl (80.0-96.0); WHITE BLOOD COUNT 8.9 K/mm3 (4.0-10.0)
[2017-05-19 06:52] LABS: ANION GAP 9 MEQ/L (8-16); BLOOD UREA NITROGEN 20 MG/DL (7-18); CALCIUM LEVEL 9.2 MG/DL (8.8-10.2); CARBON DIOXIDE LEVEL 28 MEQ/L (21-32); CHLORIDE LEVEL 104 MEQ/L (98-107); CREATININE FOR GFR 0.55 MG/DL (0.55-1.02); GLOMERULAR FILTRATION RATE > 60.0 (>39); GLUCOSE, FASTING 170 MG/DL (83-110); POTASSIUM SERUM 3.9 MEQ/L (3.5-5.1); SODIUM LEVEL 141 MEQ/L (136-145)
[2017-05-19] MEDS: KETOROLAC 0.5% OPHTH SOLN OD SCH ×4 (09:00→21:52)
[2017-05-19] MEDS: diazePAM 5 MG TAB PO PRN ×2 (09:45→21:55)
[2017-05-19] MEDS: CEFDINIR 300 MG CAP (OMNICEF) PO SCH ×2 (09:46→21:52)
[2017-05-19] MEDS: DIGOXIN 0.125 MG TAB PO SCH (09:46)
[2017-05-19] MEDS: OMEPRAZOLE 20 MG CAP PO SCH (09:47)
[2017-05-19] MEDS: ATENOLOL 50 MG TAB PO SCH (09:47)
[2017-05-19] MEDS: ASPIRIN 81 MG CHEW TABLET PO SCH (09:48)
[2017-05-19] MEDS: FLUoxetine 20 MG CAP PO SCH (09:48)
[2017-05-19] MEDS: amLODIPine 5 MG TAB PO SCH (09:49)
[2017-05-19] MEDS: HumaLOG INSULIN (NovoLOG) PER UNIT SC SCH ×4 (09:50→20:59)
[2017-05-19] MEDS: ENOXAPARIN 40 MG/0.4 ML SYRINGE (J1650) SC SCH (09:52)
[2017-05-19] MEDS: NYSTATIN 100,000 UNITS/GM TOPICAL PWD 15 GM TOP SCH ×2 (09:53→21:53)
[2017-05-19] MEDS: BRIMONIDINE 0.1% OPHTH SOLN 5 ML OU SCH ×2 (09:53→21:53)
[2017-05-19] MEDS: prednisoLONE ACET 1% OPHTH SUSP 5ML OD SCH ×2 (09:54→21:52)
[2017-05-19] MEDS: CANDESARTAN 4MG TABLET PO SCH (21:00)
[2017-05-19 21:04] VITALS: BP 126/80
[2017-05-19] MEDS: DIVALPROEX 250MG *ER* TAB PO SCH (21:52)
[2017-05-19] MEDS: LATANOPROST 0.005% OPHTH SOLN 2.5 ML OU SCH (21:52)
[2017-05-20 05:30] VITALS: BP 133/62
[2017-05-20 05:55] LABS: MEAN CORPUSCULAR HEMOGLOBIN 28.7 pg (27.0-33.0); MEAN CORPUSCULAR HGB CONC 32.9 g/dl (32.0-36.5); MEAN CORPUSCULAR VOLUME 87.1 fl (80.0-96.0); RED CELL DISTRIBUTION WIDTH 15.2 % (11.5-14.5); WHITE BLOOD COUNT 8.5 K/mm3 (4.0-10.0)
[2017-05-20 06:16] LABS: ANION GAP 6 MEQ/L (8-16); BLOOD UREA NITROGEN 17 MG/DL (7-18); CALCIUM LEVEL 9.3 MG/DL (8.8-10.2); CARBON DIOXIDE LEVEL 29 MEQ/L (21-32); CHLORIDE LEVEL 106 MEQ/L (98-107); CREATININE FOR GFR 0.53 MG/DL (0.55-1.02); GLOMERULAR FILTRATION RATE > 60.0 (>39); GLUCOSE, FASTING 128 MG/DL (83-110); POTASSIUM SERUM 4.2 MEQ/L (3.5-5.1); SODIUM LEVEL 141 MEQ/L (136-145)
[2017-05-20] MEDS: HumaLOG INSULIN (NovoLOG) PER UNIT SC SCH ×4 (08:48→21:00)
[2017-05-20] MEDS: FLUoxetine 20 MG CAP PO SCH (08:48)
[2017-05-20] MEDS: CEFDINIR 300 MG CAP (OMNICEF) PO SCH ×2 (08:48→21:18)
[2017-05-20] MEDS: OMEPRAZOLE 20 MG CAP PO SCH (08:50)
[2017-05-20] MEDS: DIGOXIN 0.125 MG TAB PO SCH (08:50)
[2017-05-20] MEDS: ASPIRIN 81 MG CHEW TABLET PO SCH (08:51)
[2017-05-20] MEDS: amLODIPine 5 MG TAB PO SCH (08:51)
[2017-05-20] MEDS: ATENOLOL 50 MG TAB PO SCH (08:52)
[2017-05-20] MEDS: prednisoLONE ACET 1% OPHTH SUSP 5ML OD SCH ×2 (08:52→21:18)
[2017-05-20] MEDS: BRIMONIDINE 0.1% OPHTH SOLN 5 ML OU SCH ×2 (08:52→21:18)
[2017-05-20] MEDS: ENOXAPARIN 40 MG/0.4 ML SYRINGE (J1650) SC SCH (08:53)
[2017-05-20] MEDS: KETOROLAC 0.5% OPHTH SOLN OD SCH ×4 (08:53→21:19)
[2017-05-20] MEDS: NYSTATIN 100,000 UNITS/GM TOPICAL PWD 15 GM TOP SCH ×2 (08:59→21:19)
[2017-05-20] MEDS: diazePAM 5 MG TAB PO PRN (10:20)
[2017-05-20] MEDS: CANDESARTAN 4MG TABLET PO SCH (21:17)
[2017-05-20] MEDS: FLUTICASONE PROP 0.05% NASAL SPRAY 16 GM (FLONASE) SCH (21:17)
[2017-05-20] MEDS: DIVALPROEX 250MG *ER* TAB PO SCH (21:18)
[2017-05-20] MEDS: LATANOPROST 0.005% OPHTH SOLN 2.5 ML OU SCH (21:18)
[2017-05-21 06:00] VITALS: BP 149/67
[2017-05-21] MEDS: HumaLOG INSULIN (NovoLOG) PER UNIT SC SCH ×4 (07:30→21:00)
[2017-05-21] MEDS: ENOXAPARIN 40 MG/0.4 ML SYRINGE (J1650) SC SCH (08:43)
[2017-05-21] MEDS: ASPIRIN 81 MG CHEW TABLET PO SCH (08:44)
[2017-05-21] MEDS: OMEPRAZOLE 20 MG CAP PO SCH (08:45)
[2017-05-21] MEDS: amLODIPine 5 MG TAB PO SCH (08:45)
[2017-05-21] MEDS: FLUoxetine 20 MG CAP PO SCH (08:45)
[2017-05-21] MEDS: ATENOLOL 50 MG TAB PO SCH (08:45)
[2017-05-21] MEDS: DIGOXIN 0.125 MG TAB PO SCH (08:45)
[2017-05-21] MEDS: CEFDINIR 300 MG CAP (OMNICEF) PO SCH ×2 (08:45→21:20)
[2017-05-21] MEDS: FLUTICASONE PROP 0.05% NASAL SPRAY 16 GM (FLONASE) SCH ×2 (08:46→21:22)
[2017-05-21] MEDS: prednisoLONE ACET 1% OPHTH SUSP 5ML OD SCH ×2 (08:46→21:22)
[2017-05-21] MEDS: BRIMONIDINE 0.1% OPHTH SOLN 5 ML OU SCH ×2 (08:46→21:21)
[2017-05-21] MEDS: KETOROLAC 0.5% OPHTH SOLN OD SCH ×4 (08:47→21:21)
[2017-05-21] MEDS: NYSTATIN 100,000 UNITS/GM TOPICAL PWD 15 GM TOP SCH ×2 (08:47→21:23)
[2017-05-21] MEDS: CANDESARTAN 4MG TABLET PO SCH (21:00)
[2017-05-21] MEDS: DIVALPROEX 250MG *ER* TAB PO SCH (21:20)
[2017-05-21] MEDS: LATANOPROST 0.005% OPHTH SOLN 2.5 ML OU SCH (21:22)
[2017-05-22 06:00] VITALS: BP 138/65
[2017-05-22] MEDS: HumaLOG INSULIN (NovoLOG) PER UNIT SC SCH ×4 (07:30→21:00)
[2017-05-22] MEDS: FLUoxetine 20 MG CAP PO SCH (09:18)
[2017-05-22] MEDS: OMEPRAZOLE 20 MG CAP PO SCH (09:18)
[2017-05-22] MEDS: DIGOXIN 0.125 MG TAB PO SCH (09:18)
[2017-05-22] MEDS: CEFDINIR 300 MG CAP (OMNICEF) PO SCH ×2 (09:18→21:57)
[2017-05-22] MEDS: amLODIPine 5 MG TAB PO SCH (09:18)
[2017-05-22] MEDS: ASPIRIN 81 MG CHEW TABLET PO SCH (09:18)
[2017-05-22] MEDS: ATENOLOL 50 MG TAB PO SCH (09:19)
[2017-05-22] MEDS: diazePAM 5 MG TAB PO PRN (09:19)
[2017-05-22] MEDS: FLUTICASONE PROP 0.05% NASAL SPRAY 16 GM (FLONASE) SCH ×2 (09:19→21:56)
[2017-05-22] MEDS: ENOXAPARIN 40 MG/0.4 ML SYRINGE (J1650) SC SCH (09:19)
[2017-05-22] MEDS: prednisoLONE ACET 1% OPHTH SUSP 5ML OD SCH ×2 (09:20→21:56)
[2017-05-22] MEDS: BRIMONIDINE 0.1% OPHTH SOLN 5 ML OU SCH ×2 (09:20→21:56)
[2017-05-22] MEDS: KETOROLAC 0.5% OPHTH SOLN OD SCH ×4 (09:20→21:56)
[2017-05-22] MEDS: NYSTATIN 100,000 UNITS/GM TOPICAL PWD 15 GM TOP SCH ×2 (09:20→21:57)
[2017-05-22] MEDS: LATANOPROST 0.005% OPHTH SOLN 2.5 ML OU SCH (21:56)
[2017-05-22] MEDS: DIVALPROEX 250MG *ER* TAB PO SCH (21:57)
[2017-05-22] MEDS: CANDESARTAN 4MG TABLET PO SCH ×2 (21:57→21:58)
[2017-05-23 06:00] VITALS: BP 119/58
[2017-05-23] MEDS: HumaLOG INSULIN (NovoLOG) PER UNIT SC SCH ×4 (07:30→21:00)
[2017-05-23] MEDS: OMEPRAZOLE 20 MG CAP PO SCH (09:06)
[2017-05-23] MEDS: CEFDINIR 300 MG CAP (OMNICEF) PO SCH ×2 (09:06→22:11)
[2017-05-23] MEDS: ASPIRIN 81 MG CHEW TABLET PO SCH (09:06)
[2017-05-23] MEDS: FLUoxetine 20 MG CAP PO SCH (09:06)
[2017-05-23] MEDS: amLODIPine 5 MG TAB PO SCH (09:06)
[2017-05-23] MEDS: DIGOXIN 0.125 MG TAB PO SCH (09:07)
[2017-05-23] MEDS: ATENOLOL 50 MG TAB PO SCH (09:07)
[2017-05-23] MEDS: FLUTICASONE PROP 0.05% NASAL SPRAY 16 GM (FLONASE) SCH ×2 (09:07→22:13)
[2017-05-23] MEDS: NYSTATIN 100,000 UNITS/GM TOPICAL PWD 15 GM TOP SCH ×2 (09:08→22:13)
[2017-05-23] MEDS: BRIMONIDINE 0.1% OPHTH SOLN 5 ML OU SCH ×2 (09:08→22:12)
[2017-05-23] MEDS: prednisoLONE ACET 1% OPHTH SUSP 5ML OD SCH ×2 (09:09→22:13)
[2017-05-23] MEDS: KETOROLAC 0.5% OPHTH SOLN OD SCH ×4 (09:09→22:14)
[2017-05-23] MEDS: ENOXAPARIN 40 MG/0.4 ML SYRINGE (J1650) SC SCH (09:10)
[2017-05-23] MEDS: traMADol 50 MG TAB PO PRN (17:10)
[2017-05-23] MEDS: CANDESARTAN 4MG TABLET PO SCH (22:11)
[2017-05-23] MEDS: LATANOPROST 0.005% OPHTH SOLN 2.5 ML OU SCH (22:13)
[2017-05-23] MEDS: DIVALPROEX 250MG *ER* TAB PO SCH (22:18)
[2017-05-24 06:00] VITALS: BP 144/64
[2017-05-24] MEDS: ENOXAPARIN 40 MG/0.4 ML SYRINGE (J1650) SC SCH (08:14)
[2017-05-24] MEDS: CEFDINIR 300 MG CAP (OMNICEF) PO SCH (08:15)
[2017-05-24] MEDS: HumaLOG INSULIN (NovoLOG) PER UNIT SC SCH ×4 (08:15→21:00)
[2017-05-24] MEDS: FLUoxetine 20 MG CAP PO SCH (08:15)
[2017-05-24] MEDS: OMEPRAZOLE 20 MG CAP PO SCH (08:15)
[2017-05-24] MEDS: ASPIRIN 81 MG CHEW TABLET PO SCH (08:16)
[2017-05-24] MEDS: ATENOLOL 50 MG TAB PO SCH (08:16)
[2017-05-24] MEDS: amLODIPine 5 MG TAB PO SCH (08:16)
[2017-05-24] MEDS: DIGOXIN 0.125 MG TAB PO SCH (08:16)
[2017-05-24] MEDS: FLUTICASONE PROP 0.05% NASAL SPRAY 16 GM (FLONASE) SCH ×2 (08:16→21:34)
[2017-05-24] MEDS: BRIMONIDINE 0.1% OPHTH SOLN 5 ML OU SCH ×2 (08:17→21:34)
[2017-05-24] MEDS: prednisoLONE ACET 1% OPHTH SUSP 5ML OD SCH (08:17)
[2017-05-24] MEDS: KETOROLAC 0.5% OPHTH SOLN OD SCH ×4 (08:17→21:34)
[2017-05-24] MEDS: NYSTATIN 100,000 UNITS/GM TOPICAL PWD 15 GM TOP SCH ×2 (08:18→21:35)
[2017-05-24] MEDS: diazePAM 5 MG TAB PO PRN ×2 (10:30→19:33)
--- NOTE | 2017-05-24 12:45 | IPNPDOC ---
Date Seen The patient was seen on 05/24/17. Progress Note SUBJECTIVE: Patient tells me that she feels well she feels that she is getting stronger day she denies chest pain fevers chills nausea vomiting or diarrhea OBJECTIVE PHYSICAL EXAMINATION: VITAL SIGNS: Please see below. GENERAL: Pleasant elderly female who sits up too great and he has entered the room she does not appear in any distress whatsoever HEENT: Likely round reactive to light she is moist mucous membranes there is no elevation central venous pressure CARDIOVASCULAR: S1-S2. RESPIRATORY: Clear to auscultation. ABDOMINAL: EXTREMITIES: Obese, benign, bowel sounds present, soft and nontender benign LABORATORY DATA: Please see below. MICROBIOLOGY: Please see below. IMAGING: No new imaging Echocardiogram: 1. Normal left ventricle size and wall thickness. Multiple regional wall motion abnormalities. 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 Akinesis of the inferior wall from base to apex. Basal inferolateral segment was severely hypokinetic and mid inferolateral segment was akinetic. Basal anterolateral segment was akinetic and mid anterolateral segment was severely hypokinetic. Normal LV wall motion and wall thickening elsewhere. Severe reduction overall LV systolic function. LVEF 30% by visual estimate. Grade 1 LV diastolic dysfunction (impaired relaxation filling pattern). 2. Mild left atrial dilatation. 3. Moderate mitral annular calcification. Mild mitral regurgitation. 4. Mild aortic valve sclerosis of a 3-cusp aortic valve. 5. Suggestive of very mild elevation of pulmonary artery systolic pressure. Normal right ventricle size and systolic function.. DVT prophylaxis ordered?: Lovenox ASSESSMENT AND PLAN: This is a 72-year-old female with gait instability. PROBLEMS: 1. Gait instability: Sounds appreciated but we multifactorial in nature she has been started on Depakote daily at bedtime continues to work with PT OT didn't feel she is safe for discharge within 24 7 care at home which unfortunately she does not have a conference with her once again today. 2. Urinary tract infection: Today is her last day of by mouth antibiotics she is asymptomatic at this time. 3. Recent cataract surgery: Continue with eyedrops 4. Atrial fibrillation: She is rate controlled with digoxin and atenolol Regulation secondary to fall risk 5. Coronary artery disease: She is on an aspirin and beta geovanni unable to tolerate statins. 6. Hypertension: Continue with Norvasc and candesartan 7. Vitamin B12 deficiency: Continue supplementation 8. Type 2 diabetes: Continue sliding scale insulin 9. Gastroesophageal reflux disease: Continue with omeprazole 10. Anxiety continue with Valium 3 times a day when necessary DISPOSITION: Pending placement likely subacute rehabilitation discussed PCC rounds this morning. VS, I&O, 24H, Fishbone Vital Signs/I&O Vital Signs Date Time Temp Pulse Resp B/P (MAP) Pulse Ox O2 Delivery O2 Flow Rate FiO2 05/24/17 08:16 68 05/24/17 08:16 144/64 05/24/17 06:00 97.4 18 94 Room Air I&O- Last 24 Hours up to 6 AM 05/24/17 06:00 Intake Total 1200 ml Output Total 1325 ml Balance -125 ml Laboratory Data 24H LABS Laboratory Tests 2 05/23/17 16:51: Bedside Glucose (Misc Panel) 109 05/23/17 20:08: Bedside Glucose (Misc Panel) 203H 05/24/17 05:10: Bedside Glucose (Misc Panel) 120H 05/24/17 11:40: Bedside Glucose (Misc Panel) 110 Microbiology Microbiology 05/14/17 Urine Culture - Final, Complete Escherichia Coli ARLYN ALEJANDRA MD May 24, 2017 12:45
[2017-05-24 14:15] VITALS: BP 137/67
[2017-05-24] MEDS: CANDESARTAN 4MG TABLET PO SCH (21:33)
[2017-05-24] MEDS: LATANOPROST 0.005% OPHTH SOLN 2.5 ML OU SCH (21:35)
[2017-05-24] MEDS: DIVALPROEX 250MG *ER* TAB PO SCH (21:39)
[2017-05-25 06:00] VITALS: BP 125/58
[2017-05-25] MEDS: traMADol 50 MG TAB PO PRN (09:13)
[2017-05-25] MEDS: FLUoxetine 20 MG CAP PO SCH (09:13)
[2017-05-25] MEDS: OMEPRAZOLE 20 MG CAP PO SCH (09:16)
[2017-05-25] MEDS: ASPIRIN 81 MG CHEW TABLET PO SCH (09:16)
[2017-05-25] MEDS: ATENOLOL 50 MG TAB PO SCH (09:17)
[2017-05-25] MEDS: amLODIPine 5 MG TAB PO SCH (09:17)
[2017-05-25] MEDS: ENOXAPARIN 40 MG/0.4 ML SYRINGE (J1650) SC SCH (09:18)
[2017-05-25] MEDS: DIGOXIN 0.125 MG TAB PO SCH (09:18)
[2017-05-25] MEDS: FLUTICASONE PROP 0.05% NASAL SPRAY 16 GM (FLONASE) SCH ×2 (09:19→20:38)
[2017-05-25] MEDS: HumaLOG INSULIN (NovoLOG) PER UNIT SC SCH ×4 (09:19→21:00)
[2017-05-25] MEDS: KETOROLAC 0.5% OPHTH SOLN OD SCH ×4 (09:20→20:40)
[2017-05-25] MEDS: BRIMONIDINE 0.1% OPHTH SOLN 5 ML OU SCH ×2 (09:20→20:39)
[2017-05-25] MEDS: prednisoLONE ACET 1% OPHTH SUSP 5ML OD SCH (09:20)
[2017-05-25] MEDS: NYSTATIN 100,000 UNITS/GM TOPICAL PWD 15 GM TOP SCH ×2 (09:21→22:06)
[2017-05-25] MEDS: DIVALPROEX 250MG *ER* TAB PO SCH (20:38)
[2017-05-25] MEDS: LATANOPROST 0.005% OPHTH SOLN 2.5 ML OU SCH (20:39)
[2017-05-25] MEDS: CANDESARTAN 4MG TABLET PO SCH (20:40)
[2017-05-25 22:00] VITALS: BP 130/59
[2017-05-26 06:00] VITALS: BP 127/62
[2017-05-26] MEDS: HumaLOG INSULIN (NovoLOG) PER UNIT SC SCH ×4 (07:30→20:37)
[2017-05-26] MEDS: ATENOLOL 50 MG TAB PO SCH (09:00)
[2017-05-26] MEDS: FLUoxetine 20 MG CAP PO SCH (09:29)
[2017-05-26] MEDS: OMEPRAZOLE 20 MG CAP PO SCH (09:29)
[2017-05-26] MEDS: amLODIPine 5 MG TAB PO SCH (09:31)
[2017-05-26] MEDS: ASPIRIN 81 MG CHEW TABLET PO SCH (09:32)
[2017-05-26] MEDS: traMADol 50 MG TAB PO PRN ×2 (09:32→20:55)
[2017-05-26] MEDS: FLUTICASONE PROP 0.05% NASAL SPRAY 16 GM (FLONASE) SCH ×2 (09:33→20:45)
[2017-05-26] MEDS: DIGOXIN 0.125 MG TAB PO SCH (09:33)
[2017-05-26] MEDS: ENOXAPARIN 40 MG/0.4 ML SYRINGE (J1650) SC SCH (09:33)
[2017-05-26] MEDS: NYSTATIN 100,000 UNITS/GM TOPICAL PWD 15 GM TOP SCH ×2 (09:34→20:46)
[2017-05-26] MEDS: BRIMONIDINE 0.1% OPHTH SOLN 5 ML OU SCH ×2 (09:34→20:46)
[2017-05-26] MEDS: prednisoLONE ACET 1% OPHTH SUSP 5ML OD SCH (09:35)
[2017-05-26] MEDS: KETOROLAC 0.5% OPHTH SOLN OD SCH ×4 (09:36→20:48)
[2017-05-26 14:00] VITALS: BP 117/56
[2017-05-26] MEDS: CANDESARTAN 4MG TABLET PO SCH (20:37)
[2017-05-26] MEDS: DIVALPROEX 250MG *ER* TAB PO SCH (20:45)
[2017-05-26] MEDS: LATANOPROST 0.005% OPHTH SOLN 2.5 ML OU SCH (20:47)
[2017-05-27 06:00] VITALS: BP 136/62
[2017-05-27] MEDS: prednisoLONE ACET 1% OPHTH SUSP 5ML OD SCH (08:25)
[2017-05-27] MEDS: KETOROLAC 0.5% OPHTH SOLN OD SCH ×4 (08:26→21:31)
[2017-05-27] MEDS: FLUTICASONE PROP 0.05% NASAL SPRAY 16 GM (FLONASE) SCH ×2 (08:27→21:30)
[2017-05-27] MEDS: NYSTATIN 100,000 UNITS/GM TOPICAL PWD 15 GM TOP SCH ×2 (08:27→21:33)
[2017-05-27] MEDS: BRIMONIDINE 0.1% OPHTH SOLN 5 ML OU SCH ×2 (08:27→21:30)
[2017-05-27] MEDS: ASPIRIN 81 MG CHEW TABLET PO SCH (08:32)
[2017-05-27] MEDS: OMEPRAZOLE 20 MG CAP PO SCH (08:32)
[2017-05-27] MEDS: ENOXAPARIN 40 MG/0.4 ML SYRINGE (J1650) SC SCH (08:32)
[2017-05-27] MEDS: HumaLOG INSULIN (NovoLOG) PER UNIT SC SCH ×4 (08:32→21:00)
[2017-05-27] MEDS: FLUoxetine 20 MG CAP PO SCH (08:32)
[2017-05-27] MEDS: amLODIPine 5 MG TAB PO SCH (08:33)
[2017-05-27] MEDS: DIGOXIN 0.125 MG TAB PO SCH (08:33)
[2017-05-27] MEDS: ATENOLOL 50 MG TAB PO SCH (08:34)
[2017-05-27] MEDS: traMADol 50 MG TAB PO PRN (10:44)
[2017-05-27] MEDS: diazePAM 5 MG TAB PO PRN (10:45)
[2017-05-27] MEDS: CANDESARTAN 4MG TABLET PO SCH (21:30)
[2017-05-27] MEDS: DIVALPROEX 250MG *ER* TAB PO SCH (21:30)
[2017-05-27] MEDS: LATANOPROST 0.005% OPHTH SOLN 2.5 ML OU SCH (21:32)
[2017-05-28 06:00] VITALS: BP 123/78
[2017-05-28] MEDS: OMEPRAZOLE 20 MG CAP PO SCH (08:13)
[2017-05-28] MEDS: FLUoxetine 20 MG CAP PO SCH (08:13)
[2017-05-28] MEDS: ASPIRIN 81 MG CHEW TABLET PO SCH (08:14)
[2017-05-28] MEDS: amLODIPine 5 MG TAB PO SCH (08:14)
[2017-05-28] MEDS: ATENOLOL 50 MG TAB PO SCH (08:14)
[2017-05-28] MEDS: DIGOXIN 0.125 MG TAB PO SCH (08:14)
[2017-05-28] MEDS: BRIMONIDINE 0.1% OPHTH SOLN 5 ML OU SCH ×2 (08:15→21:48)
[2017-05-28] MEDS: KETOROLAC 0.5% OPHTH SOLN OD SCH ×4 (08:15→21:47)
[2017-05-28] MEDS: FLUTICASONE PROP 0.05% NASAL SPRAY 16 GM (FLONASE) SCH ×2 (08:15→21:47)
[2017-05-28] MEDS: prednisoLONE ACET 1% OPHTH SUSP 5ML OD SCH (08:15)
[2017-05-28] MEDS: NYSTATIN 100,000 UNITS/GM TOPICAL PWD 15 GM TOP SCH ×2 (08:16→21:49)
[2017-05-28] MEDS: HumaLOG INSULIN (NovoLOG) PER UNIT SC SCH ×4 (08:17→21:00)
[2017-05-28] MEDS: ENOXAPARIN 40 MG/0.4 ML SYRINGE (J1650) SC SCH (12:06)
[2017-05-28] MEDS: CANDESARTAN 4MG TABLET PO SCH (21:46)
[2017-05-28] MEDS: DIVALPROEX 250MG *ER* TAB PO SCH (21:46)
[2017-05-28] MEDS: LATANOPROST 0.005% OPHTH SOLN 2.5 ML OU SCH (21:48)
[2017-05-28] MEDS: traMADol 50 MG TAB PO PRN (22:02)
[2017-05-29 06:00] VITALS: BP 109/55
[2017-05-29] MEDS: HumaLOG INSULIN (NovoLOG) PER UNIT SC SCH ×4 (08:58→21:00)
[2017-05-29] MEDS: ASPIRIN 81 MG CHEW TABLET PO SCH (09:00)
[2017-05-29] MEDS: FLUoxetine 20 MG CAP PO SCH (09:00)
[2017-05-29] MEDS: OMEPRAZOLE 20 MG CAP PO SCH (09:00)
[2017-05-29] MEDS: KETOROLAC 0.5% OPHTH SOLN OD SCH ×4 (09:03→22:15)
[2017-05-29] MEDS: prednisoLONE ACET 1% OPHTH SUSP 5ML OD SCH (09:03)
[2017-05-29] MEDS: ENOXAPARIN 40 MG/0.4 ML SYRINGE (J1650) SC SCH (09:04)
[2017-05-29] MEDS: FLUTICASONE PROP 0.05% NASAL SPRAY 16 GM (FLONASE) SCH ×2 (09:04→22:13)
[2017-05-29] MEDS: BRIMONIDINE 0.1% OPHTH SOLN 5 ML OU SCH ×2 (09:04→22:15)
[2017-05-29] MEDS: amLODIPine 5 MG TAB PO SCH (09:06)
[2017-05-29] MEDS: DIGOXIN 0.125 MG TAB PO SCH (09:06)
[2017-05-29] MEDS: ATENOLOL 50 MG TAB PO SCH (09:07)
[2017-05-29] MEDS: NYSTATIN 100,000 UNITS/GM TOPICAL PWD 15 GM TOP SCH ×2 (09:07→22:14)
[2017-05-29] MEDS: CANDESARTAN 4MG TABLET PO SCH (22:11)
[2017-05-29] MEDS: DIVALPROEX 250MG *ER* TAB PO SCH (22:12)
[2017-05-29] MEDS: LATANOPROST 0.005% OPHTH SOLN 2.5 ML OU SCH (22:15)
[2017-05-30 06:00] VITALS: BP 123/56
[2017-05-30] MEDS: NYSTATIN 100,000 UNITS/GM TOPICAL PWD 15 GM TOP SCH ×2 (08:30→21:25)
[2017-05-30] MEDS: KETOROLAC 0.5% OPHTH SOLN OD SCH ×4 (08:30→21:00)
[2017-05-30] MEDS: prednisoLONE ACET 1% OPHTH SUSP 5ML OD SCH ×2 (08:30→21:24)
[2017-05-30] MEDS: BRIMONIDINE 0.1% OPHTH SOLN 5 ML OU SCH ×2 (08:30→21:25)
[2017-05-30] MEDS: FLUTICASONE PROP 0.05% NASAL SPRAY 16 GM (FLONASE) SCH ×2 (08:30→21:25)
[2017-05-30] MEDS: ENOXAPARIN 40 MG/0.4 ML SYRINGE (J1650) SC SCH (08:31)
[2017-05-30] MEDS: OMEPRAZOLE 20 MG CAP PO SCH (08:31)
[2017-05-30] MEDS: HumaLOG INSULIN (NovoLOG) PER UNIT SC SCH ×4 (08:31→21:00)
[2017-05-30] MEDS: FLUoxetine 20 MG CAP PO SCH (08:31)
[2017-05-30] MEDS: ASPIRIN 81 MG CHEW TABLET PO SCH (08:32)
[2017-05-30] MEDS: DIGOXIN 0.125 MG TAB PO SCH (08:32)
[2017-05-30] MEDS: ATENOLOL 50 MG TAB PO SCH (08:32)
[2017-05-30] MEDS: amLODIPine 5 MG TAB PO SCH (08:33)
[2017-05-30] MEDS: LATANOPROST 0.005% OPHTH SOLN 2.5 ML OU SCH (21:00)
[2017-05-30] MEDS: CANDESARTAN 4MG TABLET PO SCH (21:24)
[2017-05-30] MEDS: DIVALPROEX 250MG *ER* TAB PO SCH (21:24)
[2017-05-31 06:00] VITALS: BP 130/64
[2017-05-31] MEDS: HumaLOG INSULIN (NovoLOG) PER UNIT SC SCH ×4 (07:47→21:00)
[2017-05-31 08:29] VITALS: BP 131/61
[2017-05-31] MEDS: NYSTATIN 100,000 UNITS/GM TOPICAL PWD 15 GM TOP SCH ×2 (09:00→20:19)
[2017-05-31] MEDS: FLUoxetine 20 MG CAP PO SCH (09:10)
[2017-05-31] MEDS: OMEPRAZOLE 20 MG CAP PO SCH (09:11)
[2017-05-31] MEDS: ATENOLOL 50 MG TAB PO SCH (09:12)
[2017-05-31] MEDS: DIGOXIN 0.125 MG TAB PO SCH (09:12)
[2017-05-31] MEDS: amLODIPine 5 MG TAB PO SCH (09:13)
[2017-05-31] MEDS: ASPIRIN 81 MG CHEW TABLET PO SCH (09:13)
[2017-05-31] MEDS: FLUTICASONE PROP 0.05% NASAL SPRAY 16 GM (FLONASE) SCH ×2 (09:14→20:19)
[2017-05-31] MEDS: BRIMONIDINE 0.1% OPHTH SOLN 5 ML OU SCH ×2 (09:14→20:19)
[2017-05-31] MEDS: ENOXAPARIN 40 MG/0.4 ML SYRINGE (J1650) SC SCH (09:17)
[2017-05-31 10:00] VITALS: BP 138/65
[2017-05-31] MEDS: diazePAM 5 MG TAB PO PRN (13:23)
[2017-05-31] MEDS: LATANOPROST 0.005% OPHTH SOLN 2.5 ML OU SCH (20:19)
[2017-05-31] MEDS: CANDESARTAN 4MG TABLET PO SCH (20:22)
[2017-05-31] MEDS: DIVALPROEX 250MG *ER* TAB PO SCH (20:23)
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
[2017-06-01 06:00] VITALS: BP 119/58
[2017-06-01] MEDS: HumaLOG INSULIN (NovoLOG) PER UNIT SC SCH ×5 (07:30→20:27)
[2017-06-01] MEDS: ASPIRIN 81 MG CHEW TABLET PO SCH (08:23)
[2017-06-01] MEDS: DIGOXIN 0.125 MG TAB PO SCH (08:24)
[2017-06-01] MEDS: ATENOLOL 50 MG TAB PO SCH (08:24)
[2017-06-01] MEDS: FLUoxetine 20 MG CAP PO SCH (08:25)
[2017-06-01] MEDS: BRIMONIDINE 0.1% OPHTH SOLN 5 ML OU SCH ×2 (08:25→20:29)
[2017-06-01] MEDS: amLODIPine 5 MG TAB PO SCH (08:25)
[2017-06-01] MEDS: ENOXAPARIN 40 MG/0.4 ML SYRINGE (J1650) SC SCH (08:25)
[2017-06-01] MEDS: FLUTICASONE PROP 0.05% NASAL SPRAY 16 GM (FLONASE) SCH ×2 (08:25→20:28)
[2017-06-01] MEDS: OMEPRAZOLE 20 MG CAP PO SCH (08:25)
[2017-06-01] MEDS: NYSTATIN 100,000 UNITS/GM TOPICAL PWD 15 GM TOP SCH ×2 (08:26→20:29)
[2017-06-01] MEDS ORDERED: diazePAM 5 MG TAB PO PRN (12:30)
[2017-06-01] MEDS: IBUPROFEN 400 MG TAB PO PRN (12:35)
[2017-06-01] MEDS: DIVALPROEX 250 MG TAB PO SCH ×2 (16:46→20:27)
[2017-06-01] MEDS: CANDESARTAN 4MG TABLET PO SCH (20:27)
[2017-06-01] MEDS: LATANOPROST 0.005% OPHTH SOLN 2.5 ML OU SCH (20:29)
[2017-06-02 06:00] VITALS: BP_SYST 12; BP_SYST 123; BP_DIAS 62
[2017-06-02] MEDS: ASPIRIN 81 MG CHEW TABLET PO SCH (08:46)
[2017-06-02] MEDS: HumaLOG INSULIN (NovoLOG) PER UNIT SC SCH ×4 (08:46→21:00)
[2017-06-02] MEDS: OMEPRAZOLE 20 MG CAP PO SCH (08:46)
[2017-06-02] MEDS: ATENOLOL 50 MG TAB PO SCH (08:47)
[2017-06-02] MEDS: VENLAFAXINE **XR** 75MG CAPSULE PO SCH (08:47)
[2017-06-02] MEDS: DIGOXIN 0.125 MG TAB PO SCH (08:47)
[2017-06-02] MEDS: DIVALPROEX 250 MG TAB PO SCH ×3 (08:48→21:39)
[2017-06-02] MEDS: amLODIPine 5 MG TAB PO SCH (08:48)
[2017-06-02] MEDS: BRIMONIDINE 0.1% OPHTH SOLN 5 ML OU SCH ×2 (08:48→21:39)
[2017-06-02] MEDS: NYSTATIN 100,000 UNITS/GM TOPICAL PWD 15 GM TOP SCH ×2 (08:48→21:39)
[2017-06-02] MEDS: FLUTICASONE PROP 0.05% NASAL SPRAY 16 GM (FLONASE) SCH ×2 (08:48→21:39)
[2017-06-02] MEDS: ENOXAPARIN 40 MG/0.4 ML SYRINGE (J1650) SC SCH (08:49)
[2017-06-02] MEDS: IBUPROFEN 400 MG TAB PO PRN (12:45)
[2017-06-02] MEDS: CANDESARTAN 4MG TABLET PO SCH (21:39)
[2017-06-02] MEDS: LATANOPROST 0.005% OPHTH SOLN 2.5 ML OU SCH (21:40)
[2017-06-03 06:00] VITALS: BP 135/60
[2017-06-03] MEDS: HumaLOG INSULIN (NovoLOG) PER UNIT SC SCH ×4 (07:24→21:00)
[2017-06-03] MEDS: ASPIRIN 81 MG CHEW TABLET PO SCH (08:30)
[2017-06-03] MEDS: NYSTATIN 100,000 UNITS/GM TOPICAL PWD 15 GM TOP SCH ×2 (08:30→20:44)
[2017-06-03] MEDS: amLODIPine 5 MG TAB PO SCH (08:31)
[2017-06-03] MEDS: DIVALPROEX 250 MG TAB PO SCH ×3 (08:31→20:44)
[2017-06-03] MEDS: VENLAFAXINE **XR** 75MG CAPSULE PO SCH (08:31)
[2017-06-03] MEDS: OMEPRAZOLE 20 MG CAP PO SCH (08:31)
[2017-06-03] MEDS: DIGOXIN 0.125 MG TAB PO SCH (08:31)
[2017-06-03] MEDS: BRIMONIDINE 0.1% OPHTH SOLN 5 ML OU SCH ×2 (08:32→20:44)
[2017-06-03] MEDS: FLUTICASONE PROP 0.05% NASAL SPRAY 16 GM (FLONASE) SCH ×2 (08:32→20:44)
[2017-06-03] MEDS: ENOXAPARIN 40 MG/0.4 ML SYRINGE (J1650) SC SCH (08:32)
[2017-06-03] MEDS: ATENOLOL 50 MG TAB PO SCH (08:37)
[2017-06-03] MEDS: IBUPROFEN 400 MG TAB PO PRN (17:06)
[2017-06-03] MEDS: CANDESARTAN 4MG TABLET PO SCH (20:37)
[2017-06-03] MEDS: LATANOPROST 0.005% OPHTH SOLN 2.5 ML OU SCH (20:44)
[2017-06-04 06:00] VITALS: BP 152/66
[2017-06-04 08:17] VITALS: BP 152/66
[2017-06-04] MEDS: VENLAFAXINE **XR** 75MG CAPSULE PO SCH (08:17)
[2017-06-04] MEDS: ASPIRIN 81 MG CHEW TABLET PO SCH (08:17)
[2017-06-04] MEDS: ATENOLOL 50 MG TAB PO SCH (08:17)
[2017-06-04] MEDS: HumaLOG INSULIN (NovoLOG) PER UNIT SC SCH ×2 (08:17→11:36)
[2017-06-04] MEDS: DIVALPROEX 250 MG TAB PO SCH (08:17)
[2017-06-04] MEDS: OMEPRAZOLE 20 MG CAP PO SCH (08:17)
[2017-06-04] MEDS: DIGOXIN 0.125 MG TAB PO SCH (08:18)
[2017-06-04] MEDS: ENOXAPARIN 40 MG/0.4 ML SYRINGE (J1650) SC SCH (08:18)
[2017-06-04] MEDS: FLUTICASONE PROP 0.05% NASAL SPRAY 16 GM (FLONASE) SCH (08:18)
[2017-06-04] MEDS: amLODIPine 5 MG TAB PO SCH (08:18)
[2017-06-04] MEDS: NYSTATIN 100,000 UNITS/GM TOPICAL PWD 15 GM TOP SCH (08:19)
[2017-06-04] MEDS: BRIMONIDINE 0.1% OPHTH SOLN 5 ML OU SCH (08:19)
[2017-06-04] MEDS ORDERED: VENL75CA2 PO (10:09)
[2017-06-04] MEDS ORDERED: DEPA250T32 PO (10:09)
[2017-06-04] MEDS ORDERED: AMLO5TAB2 PO (10:09)
[2017-06-04] MEDS ORDERED: CAND4TAB PO (10:09)
--- NOTE | 2017-06-04 12:32 | DSES ---
DATE OF ADMISSION: 05/11/2017 DATE OF DISCHARGE: 06/04/2017 SPECIALISTS INVOLVED IN CARE: Dr. Wu, Dr. Durant. DISCHARGE DIAGNOSES: 1. Gait instability, multifactorial. 2. Urinary tract infection (UTI). 3. Atrial fibrillation, rate controlled, not anticoagulated. 4. Coronary artery disease. 5. Hypertension. 6. Vitamin B12 deficiency. 7. Type 2 diabetes. 8. Gastroesophageal reflux disease (GERD). 9. Anxiety. SUMMARY OF HER PRESENTATION: This is a 72-year-old who presented after complaints of falls. She was seen in consultation by neurology and thought to have a multifactorial gait instability, was started on Depakote, was treated for a urinary tract infection (UTI) that could have been complicating her presentation. Was seen in consultation by psychiatry with the agreement of the patient. Medications were adjusted. Plan is to wean her from diazepam. On the day of discharge, she has no complaints. She is feeling well. Temperature 97.4, pulse 67, respiratory rate 18, blood pressure 152/66, 95% on room air. She is awake, alert, breathing is symmetrical and rested. No complaints. White cell count most recently was 8.5, creatinine 0.53. DISCHARGE INSTRUCTIONS: Include the followin. Followup with Dr. Caldwell on 06/15/2017 at 1:00 p.m. MEDICATIONS AT THE TIME OF DISCHARGE: - Norvasc 5 mg by mouth daily - candesartan 8 mg by mouth daily at bedtime - Depakote 250 mg by mouth three times a day - venlafaxine ER 75 mg by mouth daily - aspirin 81 mg by mouth daily - atenolol 50 mg by mouth daily - Besivance 0.6% one drop in each eye twice a day - Alphagan P one drop in each eye twice a day - Digoxin 0.125 mg by mouth daily - continue home insulin - Latanoprost one drop in each eye daily at bedtime - nystatin powder as needed - omeprazole 40 mg by mouth daily - oxycodone 5 mg by mouth three times a day - Prisoline eye drops in each eye four times daily Recommend discontinuing fluoxetine. Recommending a tapering dose of diazepam as written. The patient will also need a followup with neurology within 1 month.
[2017-06-04] MEDS ORDERED: INFLUENZA VIRUS VACCINE HIGH DOSE 0.5 ML SYRINGE (90662) IM ONE (13:00)
== END 2017-06-04 12:17 | disposition home health service (06) | DRG 74 ==
LOC: EDBD 20:04 → M ED 20:04 → M ED INP 05-11 00:57 → M PCU 05-11 16:23 → M MSPAV 05-14 15:44
PROVIDERS: ADMIT Internal Medicine; ATTEND Internal Medicine
DX: E11.40 Type 2 diabetes mellitus with diabetic neuropathy, unspecified (principal); I48.92 Unspecified atrial flutter; N39.0 Urinary tract infection, site not specified; F31.81 Bipolar II disorder; R29.6 Repeated falls; R41.1 Anterograde amnesia; G93.89 Other specified disorders of brain; F41.1 Generalized anxiety disorder; I10 Essential (primary) hypertension; I25.10 Atherosclerotic heart disease of native coronary artery without angina pectoris; K21.9 Gastro-esophageal reflux disease without esophagitis; I48.91 Unspecified atrial fibrillation; E53.8 Deficiency of other specified B group vitamins; R26.89 Other abnormalities of gait and mobility; Z79.899 Other long term (current) drug therapy; Z79.82 Long term (current) use of aspirin; M54.5 Low back pain; G47.00 Insomnia, unspecified; Z88.8 Allergy status to other drugs, medicaments and biological substances; Z91.018 Allergy to other foods; Z96.651 Presence of right artificial knee joint; Z87.891 Personal history of nicotine dependence; Z88.7 Allergy status to serum and vaccine; B96.29 Other Escherichia coli [E. coli] as the cause of diseases classified elsewhere; E66.9 Obesity, unspecified; Z79.4 Long term (current) use of insulin; H40.9 Unspecified glaucoma

== ENCOUNTER → 2017-07-17 | Outpatient (REF) | payer MEDICARE, OTHER ==
[2017-07-17 17:48] LABS: ALBUMIN 3.7 GM/DL (3.2-5.2); ALBUMIN/GLOBULIN RATIO 1.42 (1.00-1.93); ALKALINE PHOSPHATASE 126 U/L (45-117); ALT/SGPT 26 U/L (12-78); ANION GAP 9 MEQ/L (8-16); AST/SGOT 15 U/L (7-37); BILIRUBIN,TOTAL 0.3 MG/DL (0.2-1.0); BLOOD UREA NITROGEN 18 MG/DL (7-18); CALCIUM LEVEL 9.1 MG/DL (8.8-10.2); CARBON DIOXIDE LEVEL 24 MEQ/L (21-32); CHLORIDE LEVEL 106 MEQ/L (98-107); CREATININE FOR GFR 0.59 MG/DL (0.55-1.02); GLOMERULAR FILTRATION RATE > 60.0 (>39); GLUCOSE, FASTING 106 MG/DL (83-110); POTASSIUM SERUM 4.8 MEQ/L (3.5-5.1); SODIUM LEVEL 139 MEQ/L (136-145); TOTAL PROTEIN 6.3 GM/DL (6.4-8.2)
== END ==
LOC: M SFHCCLAY 13:27
PROVIDERS: ATTEND Family Medicine
DX: I10 Essential (primary) hypertension (principal); E11.9 Type 2 diabetes mellitus without complications
CPT/HCPCS: 80053; 83036; 84443; G0463